=== PATIENT | female | born 1965 | race Caucasian/White ===

== ENCOUNTER 2016-11-25 12:41 | Emergency (ER) | payer OTHER ==
[2016-11-25 12:50] VITALS: BP 136/99
--- NOTE | 2016-11-25 14:42 | RAD ---
INDICATION: Fever. COMPARISON: Comparison is made with a prior study from June 24, 2016. TECHNIQUE: Dual-energy PA and lateral views of the chest were obtained. FINDINGS: The heart is within normal limits in size. Mediastinal and hilar contours appear within normal limits. The lungs are clear. No pleural effusion is present. IMPRESSION: NO EVIDENCE FOR ACTIVE CARDIOPULMONARY DISEASE.
[2016-11-25 15:03] LABS: Hematocrit 46 % (35-47); Hemoglobin 15.4 g/dl (12.0-16.0); Mean Corpuscular HGB Conc 34 g/dl (31-36); Mean Corpuscular Hemoglobin 30 pg (27-31); Mean Corpuscular Volume 90 fL (80-97); Mean Platelet Volume 8 um3 (7.4-10.4); Red Blood Count 5.09 10^6/ul (4.0-5.4); Red Cell Distribution Width 12 % (10.5-15); White Blood Count 7.1 10^3/ul (3.5-10.8)
[2016-11-25 15:15] LABS: ALT 15 U/L (7-52); AST 19 U/L (13-39); Albumin 4.7 g/dL (3.2-5.2); Alkaline Phosphatase 46 U/L (34-104); Anion Gap 8 mmol/L (2-11); BUN/Creatinine Ratio 17.1 (8-20); Blood Urea Nitrogen 13 mg/dL (6-24); CO2 Carbon Dioxide 27 mmol/L (22-32); Chloride 103 mmol/L (101-111); EGFR African American 103.2 (>60); EGFR Non-African American 80.2 (>60); Globulin 2.8 g/dL (2-4); Glucose 85 mg/dL (70-100); Lipase 39 U/L (11.0-82.0); Potassium 3.7 mmol/L (3.5-5.0); Sodium 138 mmol/L (133-145); Total Protein 7.5 g/dL (6.4-8.9)
[2016-11-25] MEDS ORDERED: NS 0.9% 1000 ML* 1,000 ML IV ONE (15:17)
--- NOTE | 2016-11-25 15:21 | ED ---
Dizziness - HPI Summary HPI Summary: Patient presents for delayed evaluation of lightheadedness for the last 2 weeks. She claims to have had increased thyroid medication by her PCP, and since then has had insomnia, crying episodes, anxiety, abdominal cramping with watery diarrhea. Denies systemic symptoms, chest pain, shortness of breath, cough, congestion, abd pain, urinary complaints. No allev factors attempted. Sent from PCP's office for evaluation. - History Of Current Complaint Chief Complaint: EDMentalHealth Stated Complaint: SENT BY DR OFFICE Time Seen by Provider: 11/25/16 13:37 Hx Obtained From: Patient Onset/Duration: Gradually Timing: Weeks Severity Initially: Mild Severity Currently: Mild Character: Lightheaded - Allergies/Home Medications Allergies/Adverse Reactions: Allergies Allergy/AdvReac Type Severity Reaction Status Date / Time Penicillins Allergy Unknown Unknown Verified 10/04/16 13:27 Reaction Details Codeine AdvReac Mild upset Verified 10/04/16 13:27 stomach PMH/Surg Hx/FS Hx/Imm Hx Previously Healthy: Yes Endocrine/Hematology History: Reports: Hx Thyroid Disease - possible hashimotos Denies: Hx Diabetes, Hx Anemia Cardiovascular History: Reports: Other Cardiovascular Problems/Disorders - PERICARDIAL EFFUSION Denies: Hx Hypertension GI History: Reports: Hx Gall Bladder Disease - GB removed December 2010 d/t stones Denies: Hx Jaundice History: Reports: Other Problems/Disorders - 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 gall bladder removed 2010 , partial hysterectomy, left patellar knee surgery Hx Anesthesia Reactions: No Infectious Disease History: No Infectious Disease History: Denies: Hx Clostridium Difficile, Hx Hepatitis, Hx Human Immunodeficiency Virus (HIV), Hx of Known/Suspected MRSA, Hx Shingles, Hx Tuberculosis, Hx Known/ Suspected VRE, Hx Known/Suspected VRSA, History Other Infectious Disease, Traveled Outside the [place] in Last 30 Days - Family History Family History: No FMHx of Breast CA - Social History Alcohol Use: Occasionally Substance Use Type: Reports: None Hx Tobacco Use: Yes Smoking Status (MU): Former Smoker Type: Cigarettes Amount Used/How Often: 1/2 PPD Length of Time of Smoking/Using Tobacco: 30+ years Have You Smoked in the Last Year: Yes Review of Systems Positive: Fatigue. Negative: Fever, Chills Negative: Photophobia Negative: Sore Throat, Nasal Discharge Cardiovascular: Negative Negative: Palpitations, Chest Pain Respiratory: Negative Negative: Shortness Of Breath, Cough Gastrointestinal: Negative Positive: Diarrhea. Negative: Abdominal Pain, Vomiting, Nausea Genitourinary: Negative Positive: no symptoms reported. Negative: burning Positive: Anxious All Other Systems Reviewed And Are Negative: Yes Physical Exam Triage Information Reviewed: Yes Vital Signs On Initial Exam: Initial Vitals Temp Pulse Resp BP Pulse Ox 98.5 F 84 18 136/99 100 11/25/16 12:44 11/25/16 12:44 11/25/16 12:44 11/25/16 12:44 11/25/16 12:44 Vital Signs Reviewed: Yes Appearance: Positive: Well-Appearing, No Pain Distress, Well-Nourished Skin: Positive: Warm, Skin Color Reflects Adequate Perfusion, Dry Head/Face: Positive: Normal Head/Face Inspection. Negative: Temporal Artery Tenderness, Cephalohematoma Eyes: Positive: Normal, EOMI, ANGELIQUE ENT: Positive: Normal ENT inspection, Hearing grossly normal, Pharynx normal, TMs normal. Negative: Pharyngeal erythema, Nasal congestion, Nasal drainage, Tonsillar swelling, Tonsillar exudate Neck: Positive: Supple, Nontender, No Lymphadenopathy, Other: - No thyromegaly or mass on exam Respiratory/Lung Sounds: Positive: Clear to Auscultation, Breath Sounds Present Cardiovascular: Positive: Normal, RRR, Pulses are Symmetrical in both Upper and Lower Extremities Abdomen Description: Positive: Nontender, No Organomegaly, Soft Musculoskeletal: Positive: Normal, Strength/ROM Intact Neurological: Positive: Normal, Sensory/Motor Intact, Alert, Oriented to Person Place, Time, CN Intact II-III, Reflexes Intact, Normal Gait Psychiatric: Positive: Other - tearful Diagnostics - Vital Signs Vital Signs Temp Pulse Resp BP Pulse Ox 11/25/16 12:44 98.5 F 84 18 136/99 100 - Laboratory Lab Results: Lab Results 11/25/16 11/25/16 Range/Units 14:35 14:35 WBC 7.1 (3.5-10.8) 10^3/ul RBC 5.09 (4.0-5.4) 10^6/ul Hgb 15.4 (12.0-16.0) g/dl Hct 46 (35-47) % MCV 90 (80-97) fL MCH 30 (27-31) pg MCHC 34 (31-36) g/dl RDW 12 (10.5-15) % Plt Count 185 (150-450) 10^3/ul MPV 8 (7.4-10.4) um3 Neut % (Auto) 56.3 (38-83) % Lymph % (Auto) 36.5 (25-47) % Davidson % (Auto) 6.5 (1-9) % Eos % (Auto) 0.2 (0-6) % Baso % (Auto) 0.5 (0-2) % Absolute Neuts (auto) 4.0 (1.5-7.7) 10^3/ul Absolute Lymphs (auto) 2.6 (1.0-4.8) 10^3/ul Absolute Monos (auto) 0.5 (0-0.8) 10^3/ul Absolute Eos (auto) 0 (0-0.6) 10^3/ul Absolute Basos (auto) 0 (0-0.2) 10^3/ul Absolute Nucleated RBC 0 10^3/ul Nucleated RBC % 0.1 Sodium 138 (133-145) mmol/L Potassium 3.7 (3.5-5.0) mmol/L Chloride 103 (101-111) mmol/L Carbon Dioxide 27 (22-32) mmol/L Anion Gap 8 (2-11) mmol/L BUN 13 (6-24) mg/dL Creatinine 0.76 (0.51-0.95) mg/dL Est GFR ( Amer) 103.2 (>60) Est GFR (Non-Af Amer) 80.2 (>60) BUN/Creatinine Ratio 17.1 (8-20) Glucose 85 (70-100) mg/dL Calcium 10.0 (8.6-10.3) mg/dL Total Bilirubin 0.60 (0.2-1.0) mg/dL AST 19 (13-39) U/L ALT 15 (7-52) U/L Alkaline Phosphatase 46 (34-104) U/L Total Protein 7.5 (6.4-8.9) g/dL Albumin 4.7 (3.2-5.2) g/dL Globulin 2.8 (2-4) g/dL Albumin/Globulin Ratio 1.7 (1-3) Lipase 39 (11.0-82.0) U/L TSH Pending Free T4 Pending Total T3 Pending Salicylates Pending Acetaminophen Pending Serum Alcohol Pending Result Diagrams: 11/25/16 14:35 11/25/16 14:35 Lab Statement: Any lab studies that have been ordered have been reviewed, and results considered in the medical decision making process. Dizzy Course/Dx - Diagnoses Differential Diagnosis/HQI/PQRI: Anxiety, Other - Iatrogenic hyperthyroidism, UTI. Will discuss the plan with PCP after evaluation. Nontoxic appearing, but tearful. Provider Diagnoses: Hyperthyroidism - Provider Notifications Discussed Care Of Patient with: 15:43 Dr. Toya Jamil paged to discuss the hyperthyroid and symptoms. Discharge - Discharge Plan Condition: Stable Disposition: HOME Prescriptions: ALPRAZolam TAB* [Xanax TAB*] 0.125 mg PO BEDTIME PRN #3 tab MDD 1 PRN Reason: Agitation/Anxiety/Insomnia Patient Education Materials: Induced Thyroid Disorders (ED) Forms: *Work Release Referrals: Toya Villa MD [Primary Care Provider] - Additional Instructions: Stop taking the CYTOMEL (liothyronin) and the Levothyroxine [address] Jamil will change your Synthroid (Levothyroxine) prescription to 88 mcg. Use the xanax only if needed for sleep and agitation before bedtime. This is a limited supply due to the addictive property. Call Dr. Jamil tomorrow morning for a follow up appointment.
[2016-11-25 15:23] LABS: Acetaminophen < 15 mcg/mL; Alcohol < 10 mg/dL (<10); Salicylate < 2.50 mg/dL (<30)
[2016-11-25 15:34] LABS: TSH (Thyroid Stimulating Horm) < 0.03 mcIU/mL (0.34-5.60)
[2016-11-25 15:40] LABS: Free T4 1.45 ng/dL (0.61-1.12)
[2016-11-25 15:44] LABS: Total T3 1.11 ng/mL (0.87-1.78)
== END 2016-11-25 17:05 | disposition home or self-care (01) ==
LOC: ED 12:41
DX: E05.90 Thyrotoxicosis, unspecified without thyrotoxic crisis or storm (principal); Z88.5 Allergy status to narcotic agent; Z87.891 Personal history of nicotine dependence; Z88.0 Allergy status to penicillin; N30.10 Interstitial cystitis (chronic) without hematuria
CPT/HCPCS: 36415; 71020; 80053; 80320; 80329; 83690; 84439; 84443; 84479; 85025; 96360; 99283; G0480

== ENCOUNTER 2017-12-19 14:09 | Emergency (ER) | payer OTHER ==
[2017-12-19] MEDS ORDERED: NS 0.9% 1000 ML* 1,000 ML IV ONE (14:41)
[2017-12-19] MEDS ORDERED: Metoprolol Tartrate TAB* 25 MG PO ONE (16:17)
[2017-12-19 16:25] LABS: ABS Basophils 0 10^3/ul (0-0.2); ABS Eosinophils 0 10^3/ul (0-0.6); ABS Lymphocytes 2.2 10^3/ul (1.0-4.8); ABS Monocytes 0.3 10^3/ul (0-0.8); ABS Neutrophils 2.5 10^3/ul (1.5-7.7); ABS Nucleated RBC 0 10^3/ul; Eosinophil % 0.6 % (0-6); Hematocrit 37 % (35-47); Hemoglobin 12.6 g/dl (12.0-16.0); Lymphocyte % 42.9 % (25-47); Mean Corpuscular HGB Conc 35 g/dl (31-36); Mean Corpuscular Hemoglobin 29 pg (27-31); Mean Corpuscular Volume 85 fL (80-97); Mean Platelet Volume 8 um3 (7.4-10.4); Nucleated Red Blood Cells % 0.1; Platelet Count 192 10^3/ul (150-450); Red Blood Count 4.29 10^6/ul (4.0-5.4); Red Cell Distribution Width 12 % (10.5-15); White Blood Count 5.1 10^3/ul (3.5-10.8)
[2017-12-19 16:47] LABS: EGFR Non-African American 97.1 (>60)
[2017-12-19 18:10] VITALS: BP 115/75
--- NOTE | 2017-12-19 18:48 | RAD ---
Indication: Dyspnea. 2 views of the chest including dual energy PA views demonstrate no mediastinal shift. Heart is of normal size and configuration. Lung guy are clear. When compared to previous exam of November 25, 2016 no significant change is noted. IMPRESSION: No active cardiopulmonary disease is noted.
--- NOTE | 2017-12-23 19:31 | ED ---
Cassius Suggs Gabriel, scribed for Toro Celaya MD on 12/19/17 at 1509 . HPI Chest Pain - HPI Summary HPI Summary: This patient is a 52 year old F presenting to [facility] with a chief complaint of CP that began 2 months ago but in the last week has gotten worse. The patient rates the pain 10/10 in severity. Patient reports myalgia, SOB, nausea, diarrhea , inability to sleep, no appetite, gums are bleeding, fever, chills, tingling in all extremities, weakness, clear urine, and diarrhea. Patient denies cough. - History of Current Complaint Chief Complaint: EDChestPainROMI Time Seen by Provider: 12/19/17 14:19 Hx Obtained From: Patient Onset/Duration: Still Present Timing: Constant Initial Severity: Moderate Current Severity: Severe Pain Intensity: 10 Pain Scale Used: 0-10 Numeric Chest Pain Location: Diffuse Chest Pain Radiates: No Associated Signs and Symptoms: Positive: Negative - cough., Other: - myalgia, SOB, nausea, diarrhea, inability to sleep, no appetite, gums are bleeding, fever , chills, tingling in all extremities, weakness, clear urine, and diarrhea - Allergy/Home Medications Allergies/Adverse Reactions: Allergies Allergy/AdvReac Type Severity Reaction Status Date / Time codeine Allergy GI Upset Verified 12/19/17 17:51 Penicillins Allergy Rash Verified 12/19/17 17:51 PMH/Surg Hx/FS Hx/Imm Hx Endocrine/Hematology History: Reports: Hx Thyroid Disease - possible hashimotos Denies: Hx Diabetes, Hx Anemia Cardiovascular History: Reports: Other Cardiovascular Problems/Disorders - PERICARDIAL EFFUSION Denies: Hx Hypertension GI History: Reports: Hx Gall Bladder Disease - GB removed December 2010 d/t stones Denies: Hx Jaundice History: Reports: 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 gall bladder removed 2010 , partial hysterectomy, left patellar knee surgery Hx Anesthesia Reactions: No Infectious Disease History: No Infectious Disease History: Denies: Hx Clostridium Difficile, Hx Hepatitis, Hx Human Immunodeficiency Virus (HIV), Hx of Known/Suspected MRSA, Hx Shingles, Hx Tuberculosis, Hx Known/ Suspected VRE, Hx Known/Suspected VRSA, History Other Infectious Disease, Traveled Outside the [place] in Last 30 Days - Family History Known Family History: Negative: Respiratory Disease, Seizure Disorder Family History: No FMHx of Breast CA - Social History Alcohol Use: Occasionally Substance Use Type: Reports: None Hx Tobacco Use: Yes Smoking Status (MU): Former Smoker Type: Cigarettes Amount Used/How Often: 1/2 PPD Length of Time of Smoking/Using Tobacco: 30+ years Have You Smoked in the Last Year: Yes Review of Systems Positive: Fever, Chills, Other - trouble sleeping and decreased appetite ENT: Other - bleeding gums Positive: Shortness Of Breath. Negative: Cough Positive: Diarrhea, Nausea Positive: other - clear urine Positive: Myalgia Neurological: Other - tingling in all extremities Positive: Weakness All Other Systems Reviewed And Are Negative: Yes Physical Exam - Summary Physical Exam Summary: Appearance: Well-appearing, Well-nourished. Hypervigilant and anxious Skin: Warm, Dry, No rash Eyes: Normal, PERRL, EOMI, sclera anicteric ENT: Normal Neck: Supple, nontender Respiratory: Clear to auscultation Cardiovascular: S1, S2, no murmur, no rub, no gallop Abdomen: Soft, nontender, no organomegaly Bowel sounds: Present Musculoskeletal: Normal, Strength/ROM Intact, no edema, pulses symmetrical Neurological: Normal, A&Ox3, cranial nerves II-XII WNL, follows commands, gait not tested, sensation intact to pin and light touch Psychiatric: affect normal, behavior appropriate, dressed appropriately, judgment intact Triage Information Reviewed: Yes Vital Signs On Initial Exam: Initial Vitals Temp Pulse Resp BP Pulse Ox 98.7 F 60 18 120/83 98 12/19/17 14:13 12/19/17 14:13 12/19/17 14:13 12/19/17 14:13 12/19/17 14:13 Vital Signs Reviewed: Yes Diagnostics - Vital Signs Vital Signs Temp Pulse Resp BP Pulse Ox 12/19/17 14:13 98.7 F 60 18 120/83 98 - Laboratory Result Diagrams: 12/19/17 15:00 12/19/17 15:00 Lab Statement: Any lab studies that have been ordered have been reviewed, and results considered in the medical decision making process. - Radiology CXR Radiology Interpretation Completed By: ED Physician - normal Chest Pain Course/Dx - Course Assessment/Plan: This patient is a 52 year old F presenting to [facility] with a chief complaint of CP that began 2 months ago but in the last week has gotten worse. The patient rates the pain 10/10 in severity. Patient reports myalgia, SOB, nausea, diarrhea, inability to sleep, no appetite, gums are bleeding, fever , chills, tingling in all extremities, weakness, and clear urine. Patient denies cough. CXR was normal. Test results with no significant abnormalities except for a free T4 of 1.20 and a TSH of 0.01. In the ED course the patient was given IV fluids and Lopressor. Dx iatrogenic hyperthyroidism. Patient will be discharged with prescription for Lopressor and follow up from Dr. Villa. The patient is agreeable with this plan. - Diagnoses Provider Diagnoses: Iatrogenic hyperthyroidism Discharge - Discharge Plan Condition: Good Disposition: HOME Prescriptions: Metoprolol Tartrate TAB* [Lopressor TAB*] 25 mg PO BID #60 tab Referrals: Toya Villa MD [Primary Care Provider] - Additional Instructions: spoke with patient and PMD, to stop levothyroxine until TSH back to normal, lopressor for symtoms of hyperthyroidism . The documentation as recorded by the Cassius cerda Gabriel accurately reflects the service I personally performed and the decisions made by me, Toro Celaya MD.
== END 2017-12-19 18:08 | disposition home or self-care (01) ==
LOC: ED 14:09
DX: E05.80 Other thyrotoxicosis without thyrotoxic crisis or storm (principal); R07.9 Chest pain, unspecified; Z87.891 Personal history of nicotine dependence; Z88.5 Allergy status to narcotic agent; Z88.0 Allergy status to penicillin
CPT/HCPCS: 36415; 71046; 80053; 80307; 84439; 84443; 84484; 85025; 85379; 93005; 96360; 96361; 99283

== ENCOUNTER 2018-03-15 09:23 | Emergency (ER) | payer OTHER ==
--- NOTE | 2018-03-15 11:11 | ED ---
Skin Complaint - HPI Summary HPI Summary: Patient is a 52-year-old female presenting to the ED with chief complaint of tick just below the right buttocks. She is unsure how long the tick is been attached. Endorses a mild amount of pain and some erythema to the area. She states she has been dealing with her doctor regarding generalized aches and pains and would be unable to tell if she had any new symptoms. However, she states she does not have any headache, neck stiffness or joint pains at this time. She removed the tick prior to arrival but states she left the head and and would like this to be removed. And eyes any fevers. Denies any other complaints at this time. - History of Current Complaint Chief Complaint: EDRashSkinAbscess Time Seen by Provider: 03/15/18 09:44 Stated Complaint: POSS. TICK Hx Obtained From: Patient Onset/Duration: Started Hours Ago Skin Exposure Onset/Duration: Hours Ago Timing: Constant Onset Severity: Moderate Current Severity: Moderate Pain Intensity: 3 Pain Scale Used: 0-10 Numeric Skin Location: Leg - right buttocks Aggravating Symptom(s): Nothing Alleviating Symptom(s): Nothing Related History: Insect Bite/Sting - Allergy/Home Medications Allergies/Adverse Reactions: Allergies Allergy/AdvReac Type Severity Reaction Status Date / Time codeine Allergy GI Upset Verified 02/09/18 15:39 Penicillins Allergy Rash Verified 02/09/18 15:39 Home Medications: Home Medications Cholecalciferol TAB* [Vitamin D TAB*] 4,000 units PO DAILY 03/15/18 [History Confirmed 03/15/18] Cyanocobalamin TAB* [Vitamin B12 TAB*] 500 mcg PO DAILY 03/15/18 [History Confirmed 03/15/18] Levothyroxine TAB* [Synthroid TAB*] 100 mcg PO EVERY OTHER DAY 03/15/18 [ History Confirmed 03/15/18] Levothyroxine TAB* [Synthroid TAB*] 112 mcg PO EVERY OTHER DAY 03/15/18 [ History Confirmed 03/15/18] oxyCODONE/Acetam5/325MG PREPAK [Percocet 5/325 TAB*] 1 tab PO QID PRN MDD 4 tabs 03/15/18 [History Confirmed 03/15/18] PMH/Surg Hx/FS Hx/Imm Hx Previously Healthy: Yes Endocrine/Hematology History: Reports: Hx Thyroid Disease - possible hashimotos Denies: Hx Diabetes, Hx Anemia Cardiovascular History: Reports: Other Cardiovascular Problems/Disorders - PERICARDIAL EFFUSION Denies: Hx Hypertension, Hx Pacemaker/ICD GI History: Reports: Hx Gall Bladder Disease - GB removed December 2010 d/t stones Denies: Hx Jaundice History: Reports: 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 gall bladder removed 2010 , partial hysterectomy, left patellar knee surgery Hx Anesthesia Reactions: No - Immunization History Hx Pertussis Vaccination: No Immunizations Up to Date: Unable to Obtain/Confirm Infectious Disease History: No Infectious Disease History: Denies: Hx Clostridium Difficile, Hx Hepatitis, Hx Human Immunodeficiency Virus (HIV), Hx of Known/Suspected MRSA, Hx Shingles, Hx Tuberculosis, Hx Known/ Suspected VRE, Hx Known/Suspected VRSA, History Other Infectious Disease, Traveled Outside the [place] in Last 30 Days - Family History Known Family History: Negative: Respiratory Disease, Seizure Disorder Family History: No FMHx of Breast CA - Social History Occupation: Employed Full-time Lives: Alone Alcohol Use: Occasionally Hx Substance Use: No Substance Use Type: Reports: None Hx Tobacco Use: Yes Smoking Status (MU): Former Smoker Type: Cigarettes Amount Used/How Often: 1/2 PPD Length of Time of Smoking/Using Tobacco: 30+ years Have You Smoked in the Last Year: Yes Review of Systems Constitutional: Negative Eyes: Negative Cardiovascular: Negative Respiratory: Negative Genitourinary: Negative Positive: no symptoms reported, see HPI Musculoskeletal: Negative Positive: Other - small erythema surroudning tick bite Neurological: Negative All Other Systems Reviewed And Are Negative: Yes Physical Exam Triage Information Reviewed: Yes Vital Signs On Initial Exam: Initial Vitals Temp Pulse Resp BP Pulse Ox 97.7 F 59 16 142/99 100 03/15/18 09:25 03/15/18 09:25 03/15/18 09:25 03/15/18 09:25 03/15/18 09:25 Vital Signs Reviewed: Yes Appearance: Positive: No Pain Distress, Well-Nourished Skin: Positive: Skin Color Reflects Adequate Perfusion, Other - erythema surrounding tick - no EM rash Neck: Positive: Supple, No Lymphadenopathy Respiratory/Lung Sounds: Positive: Clear to Auscultation, Breath Sounds Present Cardiovascular: Positive: RRR, Pulses are Symmetrical in both Upper and Lower Extremities Musculoskeletal: Positive: Normal, Strength/ROM Intact Neurological: Positive: Sensory/Motor Intact, Alert, Oriented to Person Place, Time, Speech Normal Psychiatric: Positive: Affect/Mood Appropriate Diagnostics - Vital Signs Vital Signs Temp Pulse Resp BP Pulse Ox 03/15/18 09:25 97.7 F 59 16 142/99 100 - Laboratory Lab Statement: Any lab studies that have been ordered have been reviewed, and results considered in the medical decision making process. Course/Dx - Course Course Of Treatment: During the course Trileptal the patient is evaluated for tick bite. Tweezers to dislodge the tech. Information given on Lyme and tick bites. There is no EM rash. Denies any other symptoms. She will not be treated with prophylactic dose due to the probability of tick attachment for less than 36 hours and no other signs of infection. - Diagnoses Provider Diagnoses: Tick bite Discharge - Sign-Out/Discharge Documenting (check all that apply): Discharge/Admit/Transfer - Discharge Plan Condition: Stable Disposition: HOME Patient Education Materials: Lyme Disease (ED), Tick Bite (ED) Referrals: Toya Villa MD [Primary Care Provider] - Additional Instructions: Approach to prophylaxis : According to the Infectious Diseases Society of [place] (IDSA) guidelines that recommend antibiotic prophylaxis only in patients who meet all of the following criteria: 1. Attached tick identified as an adult or nymphal I. scapularis tick (deer tick). 2. Tick is estimated to have been attached for 36 hours (by degree of engorgement or time of exposure). 3. Prophylaxis is begun within 72 hours of tick removal. Local rate of infection of ticks with B. burgdorferi is 20 percent if attached for over 48 hours (these rates of infection have been shown to occur in parts of [place], parts of the [facility], and [place] If you experience a tick and time of attachment is believed to be less than 36 hours, you may remove the tick with head intact and no need for prophylaxis. If over 36 hours, please come into UC. Prophylactic doxycycline is not recommended for ticks attached less than 36 hours. - Billing Disposition and Condition Condition: STABLE Disposition: HOME
[2018-03-15 11:39] VITALS: BP 140/82
== END 2018-03-15 11:39 | disposition home or self-care (01) ==
LOC: ED 09:23
DX: S30.860A Insect bite (nonvenomous) of lower back and pelvis, initial encounter (principal); W57.XXXA Bitten or stung by nonvenomous insect and other nonvenomous arthropods, initial encounter; Y92.9 Unspecified place or not applicable
CPT/HCPCS: 99281

== ENCOUNTER → 2018-12-03 11:04 | Emergency (ER) | payer BC ==
[~2018-12-03 11:04] MED LIST: Ketorolac INJ* 30 MG/ML 1 ML VIAL IV PUSH ONE; Metoclopramide IV* 5 MG/ML 2 ML VIAL IV ONE; NS 0.9% 1000 ML** 1,000 ML IV ONE; Nicotine Inhaler* 10 MG AMP INH PRN; diPHENhydraMINE IV* 50 MG/ML 1 ml VIAL (BENADRYL) IV ONE
[2018-12-03 13:18] LABS: ABS Basophils 0 10^3/ul (0-0.2); ABS Eosinophils 0 10^3/ul (0-0.6); ABS Monocytes 0.4 10^3/ul (0-0.8); ABS Neutrophils 4.9 10^3/ul (1.5-7.7); ABS Nucleated RBC 0 10^3/ul; Eosinophil % 0.3 %; Hematocrit 41 % (35-47); Hemoglobin 13.7 g/dl (12.0-16.0); Lymphocyte % 26.6 %; Mean Corpuscular HGB Conc 33 g/dl (31-36); Mean Corpuscular Hemoglobin 30 pg (27-31); Mean Corpuscular Volume 89 fL (80-97); Mean Platelet Volume 7.9 fL (7.4-10.4); Nucleated Red Blood Cells % 0.1; Platelet Count 214 10^3/ul (150-450); Red Blood Count 4.65 10^6/ul (4.00-5.40); Red Cell Distribution Width 12 % (10.5-15); White Blood Count 7.3 10^3/ul (3.5-10.8)
[2018-12-03 13:37] LABS: ALT 15 U/L (7-52); AST 18 U/L (13-39); Albumin 4.5 g/dL (3.2-5.2); Alkaline Phosphatase 53 U/L (34-104); Anion Gap 4 mmol/L (2-11); BUN/Creatinine Ratio 14.1 (8-20); Blood Urea Nitrogen 9 mg/dL (6-24); CO2 Carbon Dioxide 29 mmol/L (22-32); Calcium 9.5 mg/dL (8.6-10.3); Chloride 108 mmol/L (101-111); Creatine Kinase 54 U/L (10-223); EGFR African American 117.5 (>60); EGFR Non-African American 97.1 (>60); Globulin 2.3 g/dL (2-4); Glucose 97 mg/dL (70-100); Potassium 4.6 mmol/L (3.5-5.0); Sodium 141 mmol/L (135-145); Total Protein 6.8 g/dL (6.4-8.9)
[2018-12-03 13:38] LABS: Acetaminophen < 15 mcg/mL; Alcohol < 10 mg/dL (<10); Salicylate < 2.50 mg/dL (<30)
[2018-12-03 14:01] LABS: TSH (Thyroid Stimulating Horm) 0.01 mcIU/mL (0.34-5.60)
--- NOTE | 2018-12-03 14:20 | ED ---
Complex/Multi-Sys Presentation - HPI Summary HPI Summary: 52 year old F presenting to [facility] with a chief complaint of headache, heart pounding since four weeks ago, worse since two days ago. The patient rates the pain 8/10 in severity. Symptoms aggravated by bright lights. Symptoms alleviated by nothing. Patient reports insomnia. She additionally states she has been emotionally labile for the last 3 days. Patient takes thyroid medication and vitamins. - History Of Current Complaint Chief Complaint: EDGeneral Time Seen by Provider: 12/03/18 13:59 Hx Obtained From: Patient Onset/Duration: Lasting Weeks - 4, Still Present, Worse Since - 2 days ago Timing: Constant Severity Currently: Severe Aggravating Factor(s): Bright lights Alleviating Factor(s): Nothing Associated Signs And Symptoms: Positive: Other - insomnia, emotional labile - Allergies/Home Medications Allergies/Adverse Reactions: Allergies Allergy/AdvReac Type Severity Reaction Status Date / Time codeine Allergy GI Upset Verified 02/09/18 15:39 Penicillins Allergy Rash Verified 02/09/18 15:39 Home Medications: Home Medications Estradiol PATCH 0.1 MG/DAY* [Climara PATCH 0.1 MG/DAY*] 1 patch TOPICAL .TWICE A WEEK 12/03/18 [History Confirmed 12/03/18] Levothyroxine TAB* [Synthroid TAB*] 125 mcg PO DAILY 12/03/18 [History Confirmed 12/03/18] Naproxen TAB* [Naprosyn 250 mg TAB*] 500 mg PO BID PRN 12/03/18 [History Confirmed 12/03/18] PMH/Surg Hx/FS Hx/Imm Hx Previously Healthy: No Endocrine/Hematology History: Reports: Hx Thyroid Disease - possible hashimotos Denies: Hx Diabetes, Hx Anemia Cardiovascular History: Reports: Other Cardiovascular Problems/Disorders - PERICARDIAL EFFUSION Denies: Hx Hypertension, Hx Pacemaker/ICD GI History: Reports: Hx Gall Bladder Disease - GB removed December 2010 d/t stones Denies: Hx Jaundice History: Reports: Other Problems/Disorders - interstitial cystitis under treatment as outpatient [employer] Denies: Hx Dialysis, Hx Renal Disease Musculoskeletal History: Reports: Hx Back Problems, Hx Orthopedic Injury - left patellar dislocation fixed 1982 Sensory History: Reports: Hx Contacts or Glasses Opthamlomology History: Reports: Hx Contacts or Glasses Psychiatric History: Denies: Hx Panic Disorder - Cancer History Hx Chemotherapy: No Hx Radiation Therapy: No - Surgical History Surgery Procedure, Year, and Place: 2 back surgeries. gall bladder removed 2010 , partial hysterectomy, left patellar knee surgery Hx Anesthesia Reactions: No Infectious Disease History: No Infectious Disease History: Denies: Hx Clostridium Difficile, Hx Hepatitis, Hx Human Immunodeficiency Virus (HIV), Hx of Known/Suspected MRSA, Hx Shingles, Hx Tuberculosis, Hx Known/ Suspected VRE, Hx Known/Suspected VRSA, History Other Infectious Disease, Traveled Outside the [place] in Last 30 Days - Family History Known Family History: Negative: Respiratory Disease, Seizure Disorder Family History: No FMHx of Breast CA - Social History Alcohol Use: Occasionally Hx Substance Use: No Substance Use Type: Reports: None Hx Tobacco Use: Yes Smoking Status (MU): Former Smoker Type: Cigarettes Amount Used/How Often: 1/2 PPD Length of Time of Smoking/Using Tobacco: 30+ years Have You Smoked in the Last Year: Yes Review of Systems Positive: Other - heart pounding Positive: Headache Positive: Other - emotionally labile, insomnia All Other Systems Reviewed And Are Negative: Yes Physical Exam - Summary Physical Exam Summary: Appearance: The patient is well-nourished in no acute distress and in no acute pain. Skin: The skin is warm and dry and skin color reflects adequate perfusion. HEENT: The head is normocephalic and atraumatic. The pupils are equal and reactive. The conjunctivae are clear and without drainage. Nares are patent and without drainage. Mouth reveals moist mucous membranes and the throat is without erythema and exudate. The external ears are intact. The ear canals are patent and without drainage. The tympanic membranes are intact. Neck: The neck is supple with full range of motion and non-tender. There are no carotid bruits. There is no neck vein distension. Respiratory: Chest is non-tender. Lungs are clear to auscultation and breath sounds are symmetrical and equal. Cardiovascular: Heart is regular rate and rhythm. There is no murmur or rub auscultated. There is no peripheral edema and pulses are symmetrical and equal. Abdomen: The abdomen is soft and non-tender. There are normal bowel sounds heard in all four quadrants and there is no organomegaly palpated. Musculoskeletal: There is no back tenderness noted. Extremities are non-tender with full range of motion. There is good capillary refill. There is no peripheral edema or calf tenderness elicited. Neurological: Patient is alert and oriented to person, place and time. The patient has symmetrical motor strength in all four extremities. Cranial nerves are grossly intact. Deep tendon reflexes are symmetrical and equal in all four extremities. Psychiatric: The patient is emotionally labile GCS: 15 Triage Information Reviewed: Yes Vital Signs On Initial Exam: Initial Vitals Temp Pulse Resp BP Pulse Ox 98.1 F 71 16 161/91 99 12/03/18 11:06 12/03/18 11:06 12/03/18 11:06 12/03/18 11:06 12/03/18 11:06 Vital Signs Reviewed: Yes Diagnostics - Vital Signs Vital Signs Temp Pulse Resp BP Pulse Ox 12/03/18 12:33 97.7 F 84 22 107/78 99 12/03/18 11:06 98.1 F 71 16 161/91 99 - Laboratory Lab Results: Lab Results 12/03/18 12/03/18 Range/Units 13:05 13:05 WBC 7.3 (3.5-10.8) 10^3/ul RBC 4.65 (4.00-5.40) 10^6/ul Hgb 13.7 (12.0-16.0) g/dl Hct 41 (35-47) % MCV 89 (80-97) fL MCH 30 (27-31) pg MCHC 33 (31-36) g/dl RDW 12 (10.5-15) % Plt Count 214 (150-450) 10^3/ul MPV 7.9 (7.4-10.4) fL Neut % (Auto) 67.3 % Lymph % (Auto) 26.6 % [place] % (Auto) 5.4 % Eos % (Auto) 0.3 % Baso % (Auto) 0.4 % Absolute Neuts (auto) 4.9 (1.5-7.7) 10^3/ul Absolute Lymphs (auto) 2.0 (1.0-4.8) 10^3/ul Absolute Monos (auto) 0.4 (0-0.8) 10^3/ul Absolute Eos (auto) 0 (0-0.6) 10^3/ul Absolute Basos (auto) 0 (0-0.2) 10^3/ul Absolute Nucleated RBC 0 10^3/ul Nucleated RBC % 0.1 Sodium 141 (135-145) mmol/L Potassium 4.6 (3.5-5.0) mmol/L Chloride 108 (101-111) mmol/L Carbon Dioxide 29 (22-32) mmol/L Anion Gap 4 (2-11) mmol/L BUN 9 (6-24) mg/dL Creatinine 0.64 (0.51-0.95) mg/dL Est GFR ( Amer) 117.5 (>60) Est GFR (Non-Af Amer) 97.1 (>60) BUN/Creatinine Ratio 14.1 (8-20) Glucose 97 (70-100) mg/dL Calcium 9.5 (8.6-10.3) mg/dL Total Bilirubin 0.30 (0.2-1.0) mg/dL AST 18 (13-39) U/L ALT 15 (7-52) U/L Alkaline Phosphatase 53 (34-104) U/L Total Creatine Kinase 54 (10-223) U/L Total Protein 6.8 (6.4-8.9) g/dL Albumin 4.5 (3.2-5.2) g/dL Globulin 2.3 (2-4) g/dL Albumin/Globulin Ratio 2.0 (1-3) TSH 0.01 L (0.34-5.60) mcIU/mL Salicylates < 2.50 (<30) mg/dL Acetaminophen < 15 mcg/mL Serum Alcohol < 10 (<10) mg/dL Result Diagrams: 12/03/18 13:05 12/03/18 13:05 Lab Statement: Any lab studies that have been ordered have been reviewed, and results considered in the medical decision making process. - CT Brain CT Interpretation Completed By: Radiologist Summary of CT Findings: 1. No acute intracranial process evident. 2. Mild cerebellar atrophy without change. ED physician has reviewed this report. - EKG 1242 Cardiac Rate: NL - 60 BPM EKG Rhythm: Sinus Rhythm ST Segment: Non-Specific Ectopy: None Summary of EKG Findings: No STEMI Re-Evaluation - Re-Evaluation First Eval Re-Evaluation Time: 18:18 Comment: Patient feels better and is agreeable to go home. Her headache is gone. Complex Multi-Symp Course/Dx Course Of Treatment: Ms. Oliver was emotionally labile and quite upset when I first evaluated her. It was difficult to tell exactly what her main complaint was. Her exam was unremarkable aside from the emotional lability. Labs were obtained and were unremarkable except a TSH of 0.01. A free T3 and 4 were obtained and although the T3 was a little elevated was not significant. At that point her major complaint was headache that was frontal and throbbing. She was given a migraine cocktail of normal saline, Benadryl, Reglan and Toradol. This completely resolved her headache and she felt much improved and I will discharge her for follow-up with her PCP. At no point did she have any meningeal signs. - Diagnoses Provider Diagnoses: Headache Discharge - Sign-Out/Discharge Documenting (check all that apply): Patient Departure - Discharge Patient Received Moderate/Deep Sedation with Procedure: No - Discharge Plan Condition: Stable Disposition: HOME Patient Education Materials: General Headache (ED) Forms: *Work Release Referrals: Toya Villa MD [Primary Care Provider] - 3 Days Additional Instructions: Follow up with your primary care provider in 3 days. Return to the Emergency Department for new or worsening symptoms. - Billing Disposition and Condition Condition: STABLE Disposition: Home - Attestation Statements Document Initiated by Cindy: Yes Documenting Scribe: Evangelina Piña Provider For Whom Cindy is Documenting (Include Credential): Shakir Camarillo MD Scribe Attestation: I, Evangelina Piña, scribed for Shakir Camarillo MD on 12/03/18 at 2023. Scribe Documentation Reviewed: Yes Provider Attestation: The documentation as recorded by the Evangelina cerda accurately reflects the service I personally performed and the decisions made by me, Shakir Camarillo MD Status of Scribe Document: Viewed
[2018-12-03 14:30] LABS: Urine Appearance Clear; Urine Bilirubin Negative (Negative); Urine Blood Negative (Negative); Urine Color Straw; Urine Glucose Negative (Negative); Urine Ketones Negative (Negative); Urine Nitrite Negative (Negative); Urine Protein Negative (Negative); Urine Specific Gravity 1.008 (1.010-1.030); Urine Urobilinogen Negative (Negative)
[2018-12-03 14:44] LABS: Barbiturates Urine Screen None Detected (None Detect); Benzodiazepine Urine Screen None Detected (None Detect); Urine Cannabinoids Screen Presumptive Positive (None Detect)
[2018-12-03 15:18] LABS: T4, Total 8.03 mcg/dL (6.09-12.23)
[2018-12-03 18:50] VITALS: BP 109/79
== END | disposition home or self-care (01) ==
LOC: ED 11:04
DX: R51 Headache (principal); G47.00 Insomnia, unspecified; Z88.0 Allergy status to penicillin; Z87.891 Personal history of nicotine dependence
CPT/HCPCS: 36415; 70450; 80053; 80307; 80320; 80329; 81003; 82550; 84436; 84443; 84481; 85025; 93005; 99283; G0480; J1200; J1885; J2765

== ENCOUNTER 2019-04-27 13:40 | Emergency (ER) | payer BC ==
--- OUTSIDE RECORDS SUMMARY | 2019-04-27 14:52 | XMS REPORT | Continuity of Care Document ---
:1965 External Reference #:[id number] Author Name Melvina Veronica, AMBER Address [address] [place] [address] Care Team Providers Name Role Phone Marie Samuel M.D., R.D. Care Team Information Compliance Project Manager Unavailable Payers Date Identification Numbers Payment Provider Subscriber Effective: 2015 Policy Number: [id number] Medicaid/Computer [employer] Ana Lebron Sanford Expires: 2015 Group Name: 1 1 [address] PayID: [id number] [place] [address] Effective: 2015 Policy Number: [id number] [facility] Ana Phillips Medicaid Expires: 2016 PayID: [id number] [address] [place] [address] Effective: 2016 Policy Number: [id number] [place] [facility] Medicaid Ana Lebron Sanford Expires: 2017 PayID: [id number] [address] [place] [address] Effective: 2017 Policy Number: [id number] Medicaid/Computer Science Ana J Sanford Expires: 2017 Group Name: 1 1 [address] PayID: [id number] [place] [address] Effective: 2017 Policy Number: [id number] [place] [facility] Ana J Sanford Medicaid Expires: 2018 PayID: [id number] [address] [place] [address] Effective: 2018 Policy Number: [id number] [facility] Ana Lebron Benito Group Name: [employer] [address] [address] PayID: [id number] Ronny JON [id number] Family History Date Family Member(s) Observation Comments First Son 21 First Son Healthy Grandchildren 1 in [place] Social History Type Date Description Comments Sex Unknown Diet Healthy, Well Balanced Diet Vegetarian A lot of fruits and vegetables. Loves milk and cheese. Eats fish occasionally. 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 Smoking Status Reviewed: 11/24/17 Patient is a former Stopped Nov.13, smoker 2017. Exercise Type/Frequency Does not exercise Active at work and outside in nice weather. Allergies, Adverse Reactions, Alerts Active Allergies Reaction Severity Comments Date Codeine upset stomach 12/13/2015 Aspirin upset stomach 12/13/2015 Watermelon hives 12/13/2015 Medications Active Medications SIG Qnty Indications Ordering Date Provider Hand Finger Orthosis for carpal tunnel Marie Samuel, 04/10/2018 Bilateral syndrome M.Honey, R.D. Diflucan 1 by mouth x 1 1tabs Marie Samuel, 04/06/2018 150mg Tablets M.DTristian, R.D. Doxycycline Hyclate 2 capsules po 2caps Roney Lin 03/17/2018 100mg once III, CURRICULUM DEVELOPER-C Capsules Probiotic 2 qd Marie Samuel, 08/11/2017 Capsules Manjit, R.D. Naproxen take one tablet 60tabs Marie Samuel, 05/26/2017 500mg Tablets by mouth twice a M.D., R.D. day as needed Percocet 1-2 by mouth 30tabs Marie Samuel, 07/05/2016 5-325mg Tablets twice a day as M.D., R.D. needed pain Calcium 500 + D 2 gummies qd Marie Samuel, 12/13/2015 Manjit, R.DTristian 182-230in-Psvl Tablets Estradiol Barry Colby MD 0.1mg/24HR Patches Biweek Levothyroxine Sodium Barry Colby MD 125mcg Tablets History Medications Levothyroxine Sodium 1 by mouth every 30tabs Marie Samuel, 08/16/2018 - day MMello, R.D. 12/03/2018 137mcg Tablets Levothyroxine Sodium 1 by mouth every 30tabs Marie Samuel, 07/22/2018 - day Manjit, R.D. 08/16/2018 125mcg Tablets 6 Week Carpal Tunnel Diagnosis: carpal Marie Samuel, 04/10/2018 - Solution tunnel bilaterally Manjit, R.D. 04/10/2018 Doxycycline 2 tab by mouth 2caps Roney Lin 03/16/2018 - Monohydrate once III, CURRICULUM DEVELOPER-C 03/17/2018 100mg Capsules Levothyroxine Sodium 1 by mouth 5 days 30tabs Marie Samuel, 03/16/2018 - per week and 1/2 Manjit, R.D. 07/22/2018 112mcg Tablets pill 2 days per week Levothyroxine Sodium 1 by mouth every 30tabs Marie Samuel, 03/14/2018 - day Beatriz.Honey, R.D. 03/16/2018 100mcg Tablets Levothyroxine Sodium 1 by mouth every 30tabs Marie Samuel, 01/01/2018 - day Manjit, R.D. 03/14/2018 112mcg Tablets Gabapentin Start with one 90caps M54.10 Marie Samuel, 12/29/2017 - 100mg Capsules pill at bedtime Manjit, R.D. 03/13/2018 but ok to increase to 2 or 3 pills at bedtime if needed. You can also take 1 in the morning Levothyroxine Sodium 1 by mouth every 30tabs Marie Samuel, 11/25/2017 - day Beatriz.Honey, R.D. 01/01/2018 125mcg Tablets Levothyroxine Sodium 1 by mouth every 30tabs Marie Samuel, 09/19/2017 - day Beatriz.Honey, R.D. 11/25/2017 137mcg Tablets Levothyroxine Sodium 1 po qd 30tabs Marie Samuel, 08/12/2017 - M.Honey, R.D. 09/19/2017 150mcg Tablets Ciprodex 3 drops in right QS Marie Samuel, 08/11/2017 - 0.3-0.1% ear twice a day Manjit, R.D. 12/29/2017 Suspension for a week Levothyroxine Sodium 1 by mouth every Marie Samuel, 08/11/2017 - day M.Honey, R.D. 08/12/2017 100mcg Tablets Diflucan 1 by mouth x 1 1tabs Marie Samuel, 04/14/2017 - 150mg Tablets M.Honey, R.D. 08/11/2017 Bactrim DS 1 by mouth twice a 14tabs Marie Samuel, 04/14/2017 - 800-160mg day fill Manjit, R.D. 08/11/2017 Tablets generically Levothyroxine Sodium 1 by mouth every 30tabs Marie Samuel, 11/25/2016 - day Manjit, R.D. 08/11/2017 88mcg Tablets Liothyronine Sodium take 1 po q Am 30tabs Marie Samuel, 10/31/2016 - 5mcg Beatriz.Honey, R.D. 11/25/2016 Tablets Amoxicillin 1 by mouth twice a 14tabs K02.9 Marie Samuel, 10/30/2016 - 875mg Tablets day Beatriz.Honey, R.D. 11/25/2016 Chantix Starting Month take 0.5 mg twice 1tabs Z71.6 Marie Samuel, 10/30 - Christian a day for 3 days, MMello, R.D. 04/16/2017 0.5mg X 11 & 1 mg X then 1 mg twice a 42 Tablets day Levothyroxine Sodium 1 by mouth every 30tabs Marie Samuel, 09/02/2016 - day M.Honey, R.D. 11/25/2016 100mcg Tablets Levothyroxine Sodium 1 po qd 30tabs Marie Samuel, 08/27/2016 - M.Honey, R.D. 08/27/2016 88mcg Tablets Levothyroxine Sodium 1 by mouth every 30tabs Marie Samuel, 08/27/2016 - day M.Honey, R.D. 09/02/2016 100mcg Tablets Levothyroxine Sodium 1 by mouth every 30tabs Marie Samuel, 07/07/2016 - day Beatriz.Honey, R.D. 08/27/2016 100mcg Tablets Naproxen Sodium 1 by mouth twice a 42tabs Marie Samuel, 07/05/2016 - 550mg day M.Honey, R.D. 05/26/2017 Tablets Prilosec take one capsule 30caps Marie Samuel, 07/01/2016 - 20mg Capsules DR by mouth every day Beatriz.Honey, R.D. 07/06/2016 (gerd) Tramadol HCL take one three 30tabs Marie Samuel, 06/19/2016 - 50mg Tablets times a day as M.D., R.D. 03/13/2018 needed Cephalexin 1 by mouth three 30caps R59.0 Marie Samuel, 06/10/2016 - 500mg Capsules times a day Beatriz.Honey, R.D. 07/06/2016 Levothyroxine Sodium 1 by mouth every 90tabs Marie Samuel, 06/10/2016 - day M.Honey, R.D. 07/07/2016 112mcg Tablets Levothyroxine Sodium 1 by mouth every 30tabs Marie Samuel, 12/17/2015 - day Beatriz.Honey, R.D. 06/10/2016 125mcg Tablets Levothyroxine Sodium 1 by mouth every 90tabs Marie Samuel, 07/19/2015 - day M.Honey, R.D. 12/17/2015 100mcg Tablets Cyclobenzaprine HCL take 1 tablet by 90tabs Marie Samuel, 07/19/2015 - 10mg mouth twice a day M.Honey, R.D. 03/13/2018 Tablets as needed for pain [place] generic form 30tabs Marie Samuel, 07/19/2015 - 7.5-325mg Tablets please 1 by mouth Beatriz.Honey, R.D. 07/05/2016 twice a day for severe pain Ibuprofen take 1 tablet by 60tabs Marie Samuel, 07/19/2015 - 800mg Tablets mouth two times M.Honey, R.D. 04/16/2017 daily Medications Administered in Office Medication SIG Qnty Indications Ordering Provider Date Injection Ketorolac Marie Samuel M.D., 12/29/2017 Tromethamine Per 15 MG R.D. (Toradol) Injection Injection Ketorolac Marie Samuel M.D., 04/14/2017 Tromethamine Per 15 MG R.D. (Toradol) Injection Rocephin (Ceftriaxone) Per Marie Samuel M.D., 04/14/2017 250MG R.D. Injection Injection Ketorolac Marie Samuel M.D., 07/05/2016 Tromethamine Per 15 MG R.D. (Toradol) Injection Injection Ketorolac TRAMAINE Pool 06/25/2016 Tromethamine Per 15 MG (Toradol) Injection Immunizations CPT Code Status Date Vaccine Lot # 73730 Given 12/21/1998 DT (Adult) 37083 Refused 11/24/2017 Influenza Virus Vaccine, Quadrivalent, 3 Yr > Quad , Preserv Free Vital Signs Date Vital Result Comment 04/10/2019 10:04am Weight 128.00 lb Weight 58.061 kg BP Systolic 120 mmHg BP Diastolic 74 mmHg Heart Rate 80 /min Body Temperature 98.2 F Respiratory Rate 16 /min 01/28/2018 4:21pm Weight 111.00 lb Weight 50.350 kg BP Systolic 108 mmHg BP Diastolic 70 mmHg Heart Rate 83 /min Body Temperature 98.4 F Respiratory Rate 16 /min O2 % BldC Oximetry 97 % 01/09/2018 12:26pm Weight 134.00 lb Weight 60.782 kg BP Systolic 100 mmHg BP Diastolic 80 mmHg Heart Rate 68 /min Body Temperature 98.7 F Respiratory Rate 16 /min Height 68 inches 5'8" BMI (Body Mass Index) 20.4 kg/m2 O2 % BldC Oximetry 94 % 12/29/2017 4:12pm Weight 137.00 lb Weight 62.143 kg BP Systolic 106 mmHg BP Diastolic 64 mmHg Heart Rate 69 /min Body Temperature 97.7 F Respiratory Rate 16 /min Height 67 inches 5'7" BMI (Body Mass Index) 21.5 kg/m2 O2 % BldC Oximetry 98 % 11/24/2017 12:05pm Weight 135.00 lb Weight 61.236 kg BP Systolic 100 mmHg BP Diastolic 68 mmHg Heart Rate 56 /min Body Temperature 97.3 F Respiratory Rate 14 /min 08/11/2017 3:35pm Weight 135.00 lb Weight 61.236 kg BP Systolic 110 mmHg BP Diastolic 62 mmHg Heart Rate 64 /min Body Temperature 96.9 F O2 % BldC Oximetry 98 % 04/16/2017 4:34pm Weight 133.00 lb Weight 60.329 kg BP Systolic 108 mmHg BP Diastolic 66 mmHg Heart Rate 68 /min Body Temperature 97.8 F Respiratory Rate 16 /min O2 % BldC Oximetry 98 % 04/14/2017 3:21pm Weight 128.00 lb Weight 58.061 kg BP Systolic 104 mmHg BP Diastolic 66 mmHg Heart Rate 76 /min Body Temperature 99.1 F Respiratory Rate 16 /min 11/25/2016 11:17am Weight 123.00 lb Weight 55.793 kg BP Systolic 140 mmHg BP Diastolic 88 mmHg Heart Rate 84 /min 10/30/2016 3:51pm Weight 127.00 lb Weight 57.607 kg BP Systolic 108 mmHg BP Diastolic 66 mmHg Heart Rate 65 /min Body Temperature 98.0 F Respiratory Rate 16 /min Height 67 inches 5'7" BMI (Body Mass Index) 19.9 kg/m2 O2 % BldC Oximetry 98 % 07/05/2016 12:16pm Weight 126.00 lb Weight 57.154 kg BP Systolic 90 mmHg BP Diastolic 60 mmHg Heart Rate 60 /min Body Temperature 98.0 F Respiratory Rate 12 /min 06/25/2016 12:27pm Weight 128.00 lb Weight 58.061 kg BP Systolic 106 mmHg BP Diastolic 62 mmHg Heart Rate 72 /min Body Temperature 99.2 F Respiratory Rate 18 /min 06/19/2016 11:46am Weight 124.00 lb Weight 56.246 kg BP Systolic 120 mmHg BP Diastolic 65 mmHg Heart Rate 64 /min 06/10/2016 10:40am Weight 127.00 lb Weight 57.607 kg BP Systolic 102 mmHg BP Diastolic 70 mmHg Heart Rate 64 /min Body Temperature 98.2 F Respiratory Rate 17 /min O2 % BldC Oximetry 99 % 12/13/2015 2:08pm Weight 126.00 lb Weight 57.154 kg BP Systolic 90 mmHg BP Diastolic 60 mmHg Heart Rate 62 /min Height 67.5 inches 5'7.50" BMI (Body Mass Index) 19.4 kg/m2 07/19/2015 10:25am Weight 120.00 lb Weight 54.432 kg BP Systolic 106 mmHg BP Diastolic 62 mmHg Heart Rate 76 /min Respiratory Rate 14 /min Results Test Date Facility Test Result H/L Range Note Laboratory test [facility] TSH (Thyroid 0.01 Low 0.34-5.60 finding [phone] Stimulating mcIU/mL Horm) Free T4 1.40 ng/dL High 0.61-1.12 Estradiol <40 pg/mL 1 Total T3 128 ng/dL N 87-178 Estradiol, Confirmatory, S <10 pg/mL 2 CBC Auto Diff 12/03/2018 [facility] White Blood 7.3 10^3/uL N 3.5-10.8 [phone] Count Red Blood Count 4.65 10^6/uL N 4.00-5.40 Hemoglobin 13.7 g/dL N 12.0-16.0 Hematocrit 41 % N 35-47 Mean Corpuscular Volume 89 fL N 80-97 Mean Corpuscular Hemoglobin 30 pg N 27-31 Mean Corpuscular HGB Conc 33 g/dL N 31-36 Red Cell Distribution Width 12 % N 10.5-15 Platelet Count 214 10^3/uL N 150-450 Mean Platelet Volume 7.9 fL N 7.4-10.4 Abs Neutrophils 4.9 10^3/uL N 1.5-7.7 Abs Lymphocytes 2.0 10^3/uL N 1.0-4.8 Abs Monocytes 0.4 10^3/uL N 0-0.8 Abs Eosinophils 0 10^3/uL N 0-0.6 Abs Basophils 0 10^3/uL N 0-0.2 Abs Nucleated RBC 0 10^3/uL Granulocyte % 67.3 % Lymphocyte % 26.6 % Monocyte % 5.4 % Eosinophil % 0.3 % Basophil % 0.4 % Nucleated Red Blood Cells % 0.1 Comp Metabolic Panel 12/03/2018 [facility] Sodium 141 mmol/L N 135-145 [phone] Potassium 4.6 mmol/L N 3.5-5.0 Chloride 108 mmol/L N 101-111 Co2 Carbon Dioxide 29 mmol/L N 22-32 Anion Gap 4 mmol/L N 2-11 Glucose 97 mg/dL N 70-100 Blood Urea Nitrogen 9 mg/dL N 6-24 Creatinine 0.64 mg/dL N 0.51-0.95 BUN/Creatinine Ratio 14.1 N 8-20 Calcium 9.5 mg/dL N 8.6-10.3 Total Protein 6.8 g/dL N 6.4-8.9 Albumin 4.5 g/dL N 3.2-5.2 Globulin 2.3 g/dL N 2-4 Albumin/Globulin Ratio 2.0 N 1-3 Total Bilirubin 0.30 mg/dL N 0.2-1.0 Alkaline Phosphatase 53 U/L N 34-104 Alt 15 U/L N 7-52 Ast 18 U/L N 13-39 Egfr Non- 97.1 >60 Egfr 117.5 >60 3 Laboratory test 12/03/2018 [facility] Creatine Kinase 54 U/L N 10-223 finding [phone] Acetaminophen < 15 g/mL 4 Alcohol < 10 mg/dL N <10 Salicylate < 2.50 mg/dL <30 TSH (Thyroid Stimulating Horm) 0.01 mcIU/mL Low 0.34-5.60 Urinalysis Profile 12/03/2018 [facility] Urine Color Straw [phone] Urine Appearance Clear Urine Specific [place] 1.008 Low 1.010-1.030 Urine pH 5.0 N 5-9 Urine Urobilinogen Negative Negative Urine Ketones Negative Negative Urine Protein Negative Negative Urine Leukocytes Negative Negative Urine Blood Negative Negative * * Abnormal Negative 5 Urine Nitrite Negative Negative Urine Bilirubin Negative Negative Urine Glucose Negative Negative Urine Drug 12/03/2018 [facility] Amphetamine Ur None Detected None Detect SCR ED & [phone] Screen Pain Clinic Barbiturates Urine Screen None Detected None Detect Benzodiazepine Urine Screen None Detected None Detect Urine Cannabinoids Screen Presumptive Posi <SEE NOTE> Abnormal None Detect 6 Urine Cocaine Screen None Detected None Detect Urine Opiates Screen None Detected None Detect Urine Phencyclidine Screen None Detected None Detect 7 Laboratory test 12/03/2018 [facility] Thyroxine 8.03 g/dL N 6.09-12.23 finding [phone] Free T3 4.40 pg/mL High 2.5-3.9 Laboratory 08/14/2018 [facility] TSH (Thyroid 43.24 High 0.34-5.60 test finding [phone] Stimulating mcIU/mL Horm) Free T4 0.67 ng/dL N 0.61-1.12 Total T3 71 ng/dL Low 87-178 Laboratory 07/20/2018 [facility] TSH (Thyroid 79.04 High 0.34-5.60 test finding [phone] Stimulating mcIU/mL Horm) Total T3 79 ng/dL Low 87-178 Free T4 0.57 ng/dL Low 0.61-1.12 Thyroperoxidase AB 50.07 IU/mL High <9 Thyroid Stimulating Igg (Tsi) <1.0 TSIindex <=1.3 8 Laboratory 04/04/2018 [facility] TSH (Thyroid 0.21 Low 0.34-5.60 test finding [phone] Stimulating mcIU/mL Horm) Total T3 94 ng/dL N 87-178 Free T4 1.03 ng/dL N 0.61-1.12 Laboratory test 03/26/2018 [facility] Methylmalonic Acid 0.11 <=0.40 9 finding [phone] Mma nmol/mL Nuclear AB (Romain) By Ifa Igg <1:80 (Negative) 10 Protein 03/26/2018 [facility] Total 7.1 g/dL 6.3 - Electrophoresis [phone] Protein(Pep) 7.9 Albumin 3.8 g/dL 3.4-4.7 Alpha-1 Globulin 0.3 g/dL 0.1-0.3 Alpha-2 Globulin 0.9 g/dL 0.6-1.0 Beta Globulin 0.9 g/dL 0.7-1.2 Gamma Globulin 1.2 g/dL 0.6-1.6 Albumin/Globulin Ratio 1.18 Impression See Comment 11 Laboratory test 03/26/2018 [facility] Lyme Disease Negative Negative 12 finding [phone] Serology Connective 03/26/2018 [facility] Anti-Nuclear 1.1 U High 13 Tissue Panel [phone] Antibody Cyclic Citrullinated Peptide <15.6 U 14 Interpretation See Comment 15 Heavy Metal Blool 03/26/2018 [facility] Arsenic <1 ng /mL 0-12 16 [phone] Lead 1.7 g/dL 0.0-4.9 17 Mercury <1 ng/mL 0-9 18 Cadmium 0.6 ng/mL 0.0-4.[address] [place] [id number] [facility] JENNIFER Guardian First Name ANA Guardian Last Name DELL Home Phone UNK Venous/Capillary Heavy Metals Venous Patient Race Submitting Laboratory Phone [phone] Laboratory test 03/26/2018 [facility] Rheumatoid < 10 IU/mL N <15 21 finding [phone] Factor C Reactive Protein < 1.00 mg/L N < 5.00 22 Folic Acid (Folate) > 20.00 ng/mL >3.99 23 Vitamin B12 834 pg/mL N 180-914 24 Erythrocyte Sed Rate 9 mm/Hr N 0-30 25 Laboratory test 03/14/2018 [facility] TSH (Thyroid 0.01 Low 0.34-5.60 finding [phone] Stim Horm) mcIU/mL T3 Total 1.15 ng/mL N 0.87-1.78 Free T4 (Free Thyroxine) 1.27 ng/dL High 0.61-1.12 Laboratory test 01/28/2018 [facility] Creatine 144 U/ L N 10-223 26 finding [phone] Kinase(CK) Erythrocyte Sed Rate 12 mm/Hr N 0-30 27 CRP High Sensitivity 0.32 mg/L 28 Magnesium 2.1 mg/dL N 1.9-2.7 29 Lyme Western 01/16/2018 [facility] Lyme Disease Negative Negative Blot [phone] IgG Ab WB Lyme Disease IgG Bands Present No bands detecte <SEE NOTE> kDa 30 Lyme Disease IgM Ab WB Negative Negative Lyme Disease IgM Bands Present p41, kDa Lyme Disease Interpretation See Comment 31 Tick-Borne Panel 01/16/2018 [facility] Babesia Negative Negative PCR Blood [phone] microti PCR Babesia ducani Negative Negative Babesia divergens/Mo-1 Negative Negative 32 Anaplasma phagocytophilum Negative Negative Ehrlichia chaffeensis Negative Negative Ehrlichia ewingii/canis Negative Negative Ehrlichia muris-like Negative Negative 33 B. miyamotoi PCR, B Negative Negative 34 Laboratory test 01/16/2018 [facility] Miscellaneous Test See Comment 35 finding [phone] Laboratory test 12/29/2017 [facility] TSH (Thyroid Stim 1.05 mcIU/mL N 0.34- 36 finding [phone] Horm) 5.60 T3 Total 0.75 ng/mL Low 0.87-1.78 37 Free T4 (Free Thyroxine) 0.39 ng/dL Low 0.61-1.12 38 Progesterone < 0.1 ng/mL 39 Testosterone 12/29/2017 [facility] Free 0.08 0.06- 0.92 40 Free & Total [phone] Testosterone ng/dL ng/dl Testosterone 10 ng/dL 8-60 41 Laboratory test 12/29/2017 [facility] Dhea 1.0 ng/mL <6.0 42 finding [phone] Arthritis Panel 12/29/2017 [facility] Uric Acid 3.5 mg/dL N 2.3-6.6 [phone] Erythrocyte Sed Rate 8 mm/Hr N 0-30 Anti-Nuclear Antibody 2.2 U High 43 Cyclic Citrullinated Peptide <15.6 U 44 Interpretation See Comment 45 Rheumatoid Factor <10 IU/mL 0-14 46 Anca Panel For 12/29/2017 [facility] Myeloperoxidase AB < 0.2 U 47 Vasculitis [phone] Proteinase 3 AB < 0.2 U 48 Laboratory test 12/29/2017 [facility] Estradiol <40 pg/mL 49 finding [phone] Estradiol, Confirmatory, S <10 pg/mL 50 Urine Drug 12/19/2017 [facility] Amphetamine Ur None Detected None Detect SCR ED & [phone] Screen Pain Clinic Barbiturates Urine Screen None Detected None Detect Benzodiazepine Urine Screen None Detected None Detect Urine Cannabinoids Screen Presumptive Posi <SEE NOTE> Abnormal None Detect 51 Urine Cocaine Screen None Detected None Detect Urine Opiates Screen None Detected None Detect Urine Phencyclidine Screen None Detected None Detect 52 Laboratory test 12/19/2017 [facility] D Dimer < 200 N Less 53 finding [phone] Quantitative ng/mL Than 230 TSH (Thyroid Stimulating Horm) < 0.01 mcIU/mL Low 0.34-5.60 CBC Auto Diff 12/19/2017 [facility] White Blood 5.1 10^3/uL N 3.5-10.8 [phone] Count Red Blood Count 4.29 10^6/uL N 4.0-5.4 Hemoglobin 12.6 g/dL N 12.0-16.0 Hematocrit 37 % N 35-47 Mean Corpuscular Volume 85 fL N 80-97 Mean Corpuscular Hemoglobin 29 pg N 27-31 Mean Corpuscular HGB Conc 35 g/dL N 31-36 Red Cell Distribution Width 12 % N 10.5-15 Platelet Count 192 10^3/uL N 150-450 Mean Platelet Volume 8 um3 N 7.4-10.4 Abs Neutrophils 2.5 10^3/uL N 1.5-7.7 Abs Lymphocytes 2.2 10^3/uL N 1.0-4.8 Abs Monocytes 0.3 10^3/uL N 0-0.8 Abs Eosinophils 0 10^3/uL N 0-0.6 Abs Basophils 0 10^3/uL N 0-0.2 Abs Nucleated RBC 0 10^3/uL Granulocyte % 49.4 % N 38-83 Lymphocyte % 42.9 % N 25-47 Monocyte % 6.7 % N 0-7 Eosinophil % 0.6 % N 0-6 Basophil % 0.4 % N 0-2 Nucleated Red Blood Cells % 0.1 Comp Metabolic Panel 12/19/2017 [facility] Sodium 139 mmol/L N 133-145 [phone] Potassium 3.7 mmol/L N 3.5-5.0 Chloride 107 mmol/L N 101-111 Co2 Carbon Dioxide 26 mmol/L N 22-32 Anion Gap 6 mmol/L N 2-11 Glucose 96 mg/dL N 70-100 Blood Urea Nitrogen 16 mg/dL N 6-24 Creatinine 0.64 mg/dL N 0.51-0.95 BUN/Creatinine Ratio 25.0 High 8-20 Calcium 9.6 mg/dL N 8.6-10.3 Total Protein 6.5 g/dL N 6.4-8.9 Albumin 4.2 g/dL N 3.2-5.2 Globulin 2.3 g/dL N 2-4 Albumin/Globulin Ratio 1.8 N 1-3 Total Bilirubin 0.50 mg/dL N 0.2-1.0 Alkaline Phosphatase 45 U/L N 34-104 Alt 15 U/L N 7-52 Ast 18 U/L N 13-39 Egfr Non- 97.1 >60 Egfr 124.8 >60 54 Laboratory test 12/19/2017 [facility] Troponin-I (TnI ) 0.00 ng/mL <0.04 finding [phone] Free T4 1.20 ng/dL High 0.61-1.12 Laboratory test 11/24/2017 [facility] TSH (Thyroid < 0.01 Low 0.34-5.60 55 finding [phone] Stim Horm) mcIU/mL T3 Total 1.09 ng/mL N 0.87-1.78 56 Free T4 (Free Thyroxine) 1.19 ng/dL High 0.61-1.12 57 Laboratory test 09/19/2017 [facility] TSH (Thyroid 0.06 Low 0.34-5.60 58 finding [phone] Stim Horm) mcIU/mL T3 Total 1.00 ng/mL N 0.87-1.78 59 Free T4 (Free Thyroxine) 1.70 ng/dL High 0.61-1.12 60 Laboratory test 08/11/2017 [facility] TSH (Thyroid 83.95 High 0.34-5.60 61 finding [phone] Stim Horm) mcIU/mL CBC Auto Diff 08/11/2017 [facility] White Blood 5.5 10^3/uL N 3.5-10.8 [phone] Count Red Blood Count 4.15 10^6/uL N 4.0-5.4 Hemoglobin 12.6 g/dL N 12.0-16.0 Hematocrit 38 % N 35-47 Mean Corpuscular Volume 91 fL N 80-97 Mean Corpuscular Hemoglobin 30 pg N 27-31 Mean Corpuscular HGB Conc 33 g/dL N 31-36 Red Cell Distribution Width 14 % N 10.5-15 Platelet Count 162 10^3/uL N 150-450 Mean Platelet Volume 8 um3 N 7.4-10.4 Abs Neutrophils 2.4 10^3/uL N 1.5-7.7 Abs Lymphocytes 2.6 10^3/uL N 1.0-4.8 Abs Monocytes 0.4 10^3/uL N 0-0.8 Abs Eosinophils 0.1 10^3/uL N 0-0.6 Abs Basophils 0 10^3/uL N 0-0.2 Abs Nucleated RBC 0 10^3/uL N Granulocyte % 44.7 % N 38-83 Lymphocyte % 47.0 % N 25-47 Monocyte % 6.5 % N 1-9 Eosinophil % 1.1 % N 0-6 Basophil % 0.7 % N 0-2 Nucleated Red Blood Cells % 0.1 N Comp Metabolic Panel 08/11/2017 [facility] Sodium 140 mmol/L N 133-145 [phone] Potassium 4.5 mmol/L N 3.5-5.0 Chloride 105 mmol/L N 101-111 Co2 Carbon Dioxide 32 mmol/L N 22-32 Anion Gap 3 mmol/L N 2-11 Glucose 83 mg/dL N 70-100 Blood Urea Nitrogen 13 mg/dL N 6-24 Creatinine 0.83 mg/dL N 0.51-0.95 BUN/Creatinine Ratio 15.7 N 8-20 Calcium 10.0 mg/dL N 8.6-10.3 Total Protein 6.9 g/dL N 6.4-8.9 Albumin 4.5 g/dL N 3.2-5.2 Globulin 2.4 g/dL N 2-4 Albumin/Globulin Ratio 1.9 N 1-3 Total Bilirubin 0.40 mg/dL N 0.2-1.0 Alkaline Phosphatase 46 U/L N 34-104 Alt 14 U/L N 7-52 Ast 21 U/L N 13-39 Egfr Non- 72.2 N >60 Egfr 92.8 N >60 62 Liver Function 08/11/2017 [facility] Direct 0.10 mg/ dL N 0.03-0.18 Panel [phone] Bilirubin Indirect Bilirubin 0.3 mg/dL N 0.3-1.0 Laboratory test 04/14/2017 [facility] Wound SEE RESULT 63 finding [phone] Culture/Sensi BELOW CBC Auto Diff 11/25/2016 [facility] White Blood Count 7.1 10^3/uL N 3.5-2 [phone] 0.8 Red Blood Count 5.09 10^6/uL N 4.0-5.4 Hemoglobin 15.4 g/dL N 12.0-16.0 Hematocrit 46 % N 35-47 Mean Corpuscular Volume 90 fL N 80-97 Mean Corpuscular Hemoglobin 30 pg N 27-31 Mean Corpuscular HGB Conc 34 g/dL N 31-36 Red Cell Distribution Width 12 % N 10.5-15 Platelet Count 185 10^3/uL N 150-450 Mean Platelet Volume 8 um3 N 7.4-10.4 Abs Neutrophils 4.0 10^3/uL N 1.5-7.7 Abs Lymphocytes 2.6 10^3/uL N 1.0-4.8 Abs Monocytes 0.5 10^3/uL N 0-0.8 Abs Eosinophils 0 10^3/uL N 0-0.6 Abs Basophils 0 10^3/uL N 0-0.2 Abs Nucleated RBC 0 10^3/uL N Granulocyte % 56.3 % N 38-83 Lymphocyte % 36.5 % N 25-47 Monocyte % 6.5 % N 1-9 Eosinophil % 0.2 % N 0-6 Basophil % 0.5 % N 0-2 Nucleated Red Blood Cells % 0.1 N Comp Metabolic Panel 11/25/2016 [facility] Sodium 138 mmol/L N 133-145 [phone] Potassium 3.7 mmol/L N 3.5-5.0 Chloride 103 mmol/L N 101-111 Co2 Carbon Dioxide 27 mmol/L N 22-32 Anion Gap 8 mmol/L N 2-11 Glucose 85 mg/dL N 70-100 Blood Urea Nitrogen 13 mg/dL N 6-24 Creatinine 0.76 mg/dL N 0.51-0.95 BUN/Creatinine Ratio 17.1 N 8-20 Calcium 10.0 mg/dL N 8.6-10.3 Total Protein 7.5 g/dL N 6.4-8.9 Albumin 4.7 g/dL N 3.2-5.2 Globulin 2.8 g/dL N 2-4 Albumin/Globulin Ratio 1.7 N 1-3 Total Bilirubin 0.60 mg/dL N 0.2-1.0 Alkaline Phosphatase 46 U/L N 34-104 Alt 15 U/L N 7-52 Ast 19 U/L N 13-39 Egfr Non- 80.2 N >60 Egfr 103.2 N >60 64 Laboratory test 11/25/2016 [facility] Lipase 39 U/L N 11.0-82.0 finding [phone] Acetaminophen < 15 g/mL N 65 Alcohol < 10 mg/dL N <10 Salicylate < 2.50 mg/dL N <30 TSH (Thyroid Stim Horm) < 0.03 mcIU/mL Low 0.34-5.60 Free T4 1.45 ng/dL High 0.61-1.12 Total T3 1.11 ng/mL N 0.87-1.78 Laboratory test 10/30/2016 [facility] TSH (Thyroid 0.79 mcIU/mL N 0.34-5.60 66 finding [phone] Stim Horm) T3 Free 2.90 pg/mL N 2.5-3.9 67 Thyroxine 8.96 ?g/dL N 6.09-12.23 68 Laboratory test 08/16/2016 [facility] TSH (Thyroid 0.26 Low 0.34-5.60 69 finding [phone] Stim Horm) mcIU/mL T3 Total 0.58 ng/mL Low 0.87-1.78 70 Free T4 (Free Thyroxine) 1.05 ng/dL N 0.61-1.12 71 Laboratory test 07/05/2016 [facility] TSH (Thyroid 0.11 Low 0.34-5.60 72 finding [phone] Stim Horm) mcIU/mL T3 Total 0.87 ng/mL N 0.87-1.78 73 Free T4 (Free Thyroxine) 1.18 ng/dL High 0.61-1.12 74 CBC Auto Diff 06/24/2016 [facility] White Blood 5.7 10^3/uL N 3.5-10.8 [phone] Count Red Blood Count 4.84 10^6/uL N 4.0-5.4 Hemoglobin 14.4 g/dL N 12.0-16.0 Hematocrit 43 % N 35-47 Mean Corpuscular Volume 89 fL N 80-97 Mean Corpuscular Hemoglobin 30 pg N 27-31 Mean Corpuscular HGB Conc 33 g/dL N 31-36 Red Cell Distribution Width 13 % N 10.5-15 Platelet Count 197 10^3/uL N 150-450 Mean Platelet Volume 9 um3 N 7.4-10.4 Abs Neutrophils 3.0 10^3/uL N 1.5-7.7 Abs Lymphocytes 2.4 10^3/uL N 1.0-4.8 Abs Monocytes 0.3 10^3/uL N 0-0.8 Abs Eosinophils 0 10^3/uL N 0-0.6 Abs Basophils 0 10^3/uL N 0-0.2 Abs Nucleated RBC 0 10^3/uL N Granulocyte % 51.8 % N 38-83 Lymphocyte % 41.6 % N 25-47 Monocyte % 5.5 % N 1-9 Eosinophil % 0.6 % N 0-6 Basophil % 0.5 % N 0-2 Nucleated Red Blood Cells % 0.1 N Laboratory test 06/24/2016 [facility] Lactic Acid 0.6 mmol/L N 0.5-2.0 75 finding [phone] B Type Natriuretic Peptide 51 pg/mL N 76 Urinalysis Profile 06/24/2016 [facility] Urine Color Straw N [phone] Urine Appearance Clear N Urine Specific [place] 1.006 Low 1.010-1.030 Urine pH 6.0 N 5-9 Urine Urobilinogen Negative N Negative Urine Ketones Negative N Negative Urine Protein Negative N Negative Urine Leukocytes Negative N Negative Urine Blood 1+ Abnormal Negative Urine Nitrite Negative N Negative Urine Bilirubin Negative N Negative Urine Glucose Negative N Negative Urine White Blood Cell Absent N Absent Urine Red Blood Cell Trace(0-2/hpf) N Absent Urine Bacteria Absent N Absent Urine Squamous Epithelial Cell Present Abnormal Absent Laboratory test 06/24/2016 [facility] Amylase 66 U/L N 29-103 finding [phone] Lipase 42 U/L N 11.0-82.0 C Reactive Protein < 1.00 mg/L N < 5.00 77 Troponin I 0.00 ng/mL N <0.03 78 Comp Metabolic Panel 06/24/2016 [facility] Sodium 140 mmol/L N 133-145 [phone] Potassium 3.9 mmol/L N 3.5-5.0 Chloride 107 mmol/L N 101-111 Co2 Carbon Dioxide 30 mmol/L N 22-32 Anion Gap 3 mmol/L N 2-11 Glucose 86 mg/dL N 70-100 Blood Urea Nitrogen 6 mg/dL N 6-24 Creatinine 0.66 mg/dL N 0.51-0.95 BUN/Creatinine Ratio 9.1 N 8-20 Calcium 9.5 mg/dL N 8.6-10.3 Total Protein 7.0 g/dL N 6.4-8.9 Albumin 4.4 g/dL N 3.2-5.2 Globulin 2.6 g/dL N 2-4 Albumin/Globulin Ratio 1.7 N 1-3 Total Bilirubin 0.40 mg/dL N 0.2-1.0 Alkaline Phosphatase 50 U/L N 34-104 Alt 11 U/L N 7-52 Ast 13 U/L N 13-39 Egfr Non- 94.4 N >60 Egfr 121.4 N >60 79 Urine DIP 06/19/2016 In House Lab Leukocytes neg Neg [phone] Urine Nitrites neg Neg Urobilinogen norm Norm Total Protein, Urine neg Neg Urine pH 7 High 5-6 Urine Blood trace Neg Specific [place] 1.005 Low 1.01-1.02 Urine Ketones neg Neg Urine Bilirubin neg Neg Urine Glucose norm Norm Laboratory test 06/10/2016 [facility] Erythrocyte Sed 10 mm/Hr N 0-30 80 finding [phone] Rate C Reactive Protein < 1.00 mg/L N < 5.00 81 CBC Auto Diff 06/10/2016 [facility] White Blood 6.9 10^3/uL N 3.5-10.8 [phone] Count Red Blood Count 4.78 10^6/uL N 4.0-5.4 Hemoglobin 14.4 g/dL N 12.0-16.0 Hematocrit 43 % N 35-47 Mean Corpuscular Volume 91 fL N 80-97 Mean Corpuscular Hemoglobin 30 pg N 27-31 Mean Corpuscular HGB Conc 33 g/dL N 31-36 Red Cell Distribution Width 13 % N 10.5-15 Platelet Count 203 10^3/uL N 150-450 Mean Platelet Volume 9 um3 N 7.4-10.4 Abs Neutrophils 4.2 10^3/uL N 1.5-7.7 Abs Lymphocytes 2.2 10^3/uL N 1.0-4.8 Abs Monocytes 0.5 10^3/uL N 0-0.8 Abs Eosinophils 0 10^3/uL N 0-0.6 Abs Basophils 0 10^3/uL N 0-0.2 Abs Nucleated RBC 0.01 10^3/uL N Granulocyte % 60.8 % N 38-83 Lymphocyte % 31.6 % N 25-47 Monocyte % 6.9 % N 1-9 Eosinophil % 0.3 % N 0-6 Basophil % 0.4 % N 0-2 Nucleated Red Blood Cells % 0.1 N Laboratory test 06/10/2016 [facility] T3 Total 0.83 ng/mL Low 0.87-1.78 82 finding [phone] Free T4 (Free Thyroxine) 1.26 ng/dL High 0.61-1.12 83 Basic Metabolic 06/10/2016 [facility] Sodium 139 mmol /L N 133-145 Panel [phone] Potassium 4.9 mmol/L N 3.5-5.0 Chloride 107 mmol/L N 101-111 Co2 Carbon Dioxide 28 mmol/L N 22-32 Anion Gap 4 mmol/L N 2-11 Glucose 91 mg/dL N 70-100 Blood Urea Nitrogen 7 mg/dL N 6-24 Creatinine 0.71 mg/dL N 0.51-0.95 BUN/Creatinine Ratio 9.9 N 8-20 Calcium 9.6 mg/dL N 8.6-10.3 Egfr Non- 86.8 N >60 Egfr 111.6 N >60 84 Laboratory 06/10/2016 [facility] TSH (Thyroid 0.04 Low 0.34-5.60 85 test finding [phone] Stim Horm) mcIU/mL Lipid Profile 12/13/2015 [facility] Triglycerides 159 mg/dL N 86 (Trig/Chol/HDL [phone] ) Cholesterol 165 mg/dL N 87 HDL Cholesterol 43.3 mg/dL N 88 LDL Cholesterol 90 mg/dL N 89 Laboratory test 12/13/2015 [facility] TSH (Thyroid 4.86 ?IU/mL N 0.34-5.60 finding [phone] Stim Horm) Free T4 (Free Thyroxine) 0.91 ng/dL N 0.61-1.12 T3 Total 0.69 ng/mL Low 0.87-1.78 Laboratory test 12/13/2015 [facility] Cytology SEE RESULT 90 finding [phone] BELOW HPV Rna Ww/Reflex Genotype Negative N Negative 91 Comp Metabolic Panel 07/19/2015 [facility] Sodium 138 mmol/L N 133-145 [phone] Potassium 4.7 mmol/L N 3.5-5.0 Chloride 104 mmol/L N 101-111 Co2 Carbon Dioxide 27 mmol/L N 22-32 Anion Gap 7 mmol/L N 2-11 Glucose 88 mg/dL N 70-100 Blood Urea Nitrogen 7 mg/dL N 6-24 Creatinine 0.70 mg/dL N 0.51-0.95 BUN/Creatinine Ratio 10.0 N 8-20 Calcium 9.5 mg/dL N 8.6-10.3 Total Protein 7.3 g/dL N 6.4-8.9 Albumin 4.8 g/dL N 3.2-5.2 Globulin 2.5 g/dL N 2-4 Albumin/Globulin Ratio 1.9 N 1-3 Total Bilirubin 0.60 mg/dL N 0.2-1.0 Alkaline Phosphatase 51 U/L N 34-104 Alt 11 U/L N 7-52 Ast 17 U/L N 13-39 Egfr Non- 88.6 N >60 Egfr 113.9 N >60 92 CBC Auto Diff 07/19/2015 [facility] White Blood 6.8 10^3/uL N 4.8-10.8 [phone] Count Red Blood Count 4.85 10^6/uL N 4.0-5.4 Hemoglobin 15.0 g/dL N 12.0-16.0 Hematocrit 46 % N 35-47 Mean Corpuscular Volume 94 fL N 80-97 Mean Corpuscular Hemoglobin 31 pg N 27-31 Mean Corpuscular HGB Conc 33 g/dL N 31-36 Red Cell Distribution Width 13 % N 10.5-15 Platelet Count 256 10^3/uL N 150-450 Mean Platelet Volume 9 um3 N 7.4-10.4 Abs Neutrophils 4.4 10^3/uL N 1.5-7.7 Abs Lymphocytes 2.0 10^3/uL N 1.0-4.8 Abs Monocytes 0.3 10^3/uL N 0-0.8 Abs Eosinophils 0 10^3/uL N 0-0.6 Abs Basophils 0.1 10^3/uL N 0-0.2 Abs Nucleated RBC 0.01 10^3/uL N Granulocyte % 65.4 % N 38-83 Lymphocyte % 28.9 % N 25-47 Monocyte % 4.5 % N 1-9 Eosinophil % 0.3 % N 0-6 Basophil % 0.9 % N 0-2 Nucleated Red Blood Cells % 0.1 N Laboratory test 07/19/2015 [facility] TSH (Thyroid 2.70 ?IU/mL N 0.34-5.60 finding [phone] Stim Horm) Urine DIP 07/19/2015 In House Lab Specific 1.005 Low 1.01-1.02 [phone] [place] Urine pH 6 5-6 Leukocytes tracw Neg Urine Nitrites neg Neg Total Protein, Urine neg Neg Urine Glucose norm Norm Urine Ketones neg Neg Urobilinogen norm Norm Urine Bilirubin neg Neg Urine Blood neg Neg Laboratory test 11/11/2000 [email or web address]. T-4 Total 5.0 g/dL 4.5 - 12 93 finding [phone] TSH (Thyrotropin) 11.65 uIU/ml High 0.49 - 4.67 1 Estradiols <40 pg/mL are sent to a reference lab for low range testing. Postmenopausal Females < 20 Ovulating females: by day in cycle relative to LH Peak Follicular phase - 12 10-50 - 4 60-200 Mid-cycle - 1 120-375 Luteal phase + 2 50-155 + 6 60-260 + 12 15-115 2 REFERENCE VALUE Premenopausal: 15-350 (E2 levels vary widely through the menstrual cycle.) Postmenopausal: <10 ADDITIONAL INFORMATION This test was developed and its performance characteristics determined by [facility] in a manner consistent with CLIA requirements. This test has not been cleared or approved by the U.S. Food and Drug Administration. Test Performed by: [facility] [address] [place] [address] 3 Because ethnic data is not always readily available, this report includes an eGFR for both -Americans and non- Americans. The National Kidney Disease Education Program (NKDEP) does not endorse the use of the MDRD equation for patients that are not between the ages of 18 and 70, are , have extremes of body size, muscle mass, or nutritional status, or are non- or non-. According to the National Kidney Foundation, irrespective of diagnosis, the stage of the disease is based on the level of kidney function: Stage Description GFR(mL/min/1.73 m(2)) 1 Kidney damage with normal or decreased GFR 90 2 Kidney damage with mild decrease in GFR 60-89 3 Moderate decrease in GFR 30-59 4 Severe decrease in GFR 15-29 5 Kidney failure <15 (or dialysis) 4 Therapeutic concentration: <50 ug/mL Toxic concentration: >120 ug/mL 5 *Ascorbic acid is present which may interfere with detection of blood. 6 Presumptive Positive Presumptive positive results are unconfirmed. 7 The urine specimen was tested at the listed cutoffs: Drug class test level (ng/mL) Amphetamines 500 Barbiturates 200 Benzodiazepine metabolites 200 Cocaine metabolites 150 Cannabinoids 50 Opiates 300 Pcp 25 Specimen was received without chain of custody. Results should be used for medical purposes only. 8 Test Performed by: [facility] [address] [place] [address] 9 ADDITIONAL INFORMATION This test was developed and its performance characteristics determined by [facility] in a manner consistent with CLIA requirements. This test has not been cleared or approved by the U.S. Food and Drug Administration. Test Performed by: [facility] [address] [place] [address] 10 <1:80 (Negative) REFERENCE VALUE <1:80 (Negative) Test Performed by: [facility] - [address] [address] 11 RESULT: No apparent monoclonal protein on serum electrophoresis. Test Performed by: [facility] - [address] [address] 12 No evidence of antibodies to B. burgdorferi detected. False negative results may occur in recently infected patients (<=2 weeks) due to low or undetectable antibody levels to B. burgdorferi. If recent exposure is suspected, a second sample should be collected and tested in 2-4 weeks. Test Performed by: [facility] [address] [place] [address] 13 Interpretation: Weak Positive (1.1-2.9) REFERENCE VALUE <=1.0 (Negative) 14 REFERENCE VALUE <20.0 (Negative) 15 Tests for antibodies to dsDNA and VIDA antigens are not performed automatically unless the ROMAIN result is > or= 3.0 U. Studies performed at [facility] indicate that positive ROMAIN results <3.0 U are rarely accompanied by positive second order tests. Test Performed by: [facility] - [address] [address] 16 ADDITIONAL INFORMATION This test was developed and its performance characteristics determined by [facility] in a manner consistent with CLIA requirements. This test has not been cleared or approved by the U.S. Food and Drug Administration. 17 ADDITIONAL INFORMATION Testing performed by Inductively Coupled Plasma-Mass Spectrometry (ICP-MS). This test was developed and its performance characteristics determined by [facility] in a manner consistent with CLIA requirements. This test has not been cleared or approved by the U.S. Food and Drug Administration. 18 ADDITIONAL INFORMATION This test was developed and its performance characteristics determined by [facility] in a manner consistent with CLIA requirements. This test has not been cleared or approved by the U.S. Food and Drug Administration. 19 ADDITIONAL INFORMATION This test was developed and its performance characteristics determined by [facility] in a manner consistent with CLIA requirements. This test has not been cleared or approved by the U.S. Food and Drug Administration. 20 Test Performed by: [facility] [place] [address] 21 Copy Result to: MARIE SAMUEL ([id number]) 22 Acute inflammation: >10.00 23 Copy Result to: MARIE SAMUEL ([id number]) 24 Normal Range 180 to 914 Indeterminate Range 145 to 180 Deficient Range <145 25 Copy Result to: MARIE SAMUEL ([id number]) 26 [id number] 28 Low risk: <1.00 Average risk: 1.00-3.00 High risk: >3.00 29 [id number] 30 No bands detected 31 Specific serologic response to B. burgdorferi infection is not detected, but cannot rule out early infection during which low or undetectable antibody levels to B. burgdorferi may be present. If clinically indicated, a new serum specimen should be submitted in 7-14 days. ADDITIONAL INFORMATION CDC criteria require >=5 bands for IgG or >=2 bands for IgM for the Immunoblot to be considered positive. Bands (e.g.,p41) may be detected in patients without Lyme disease, and patterns not meeting the CDC criteria should be interpreted with caution. Immunoblot should be ordered only on specimens that are positive or equivocal by a FDA-licensed Lyme disease antibody screening test (e.g., EIA). Test Performed by: [facility] [address] [place] [address] 32 ADDITIONAL INFORMATION This test was developed and its performance characteristics determined by [facility] in a manner consistent with CLIA requirements. This test has not been cleared or approved by the U.S. Food and Drug Administration. 33 ADDITIONAL INFORMATION This test was developed and its performance characteristics determined by [facility] in a manner consistent with CLIA requirements. This test has not been cleared or approved by the U.S. Food and Drug Administration. 34 ADDITIONAL INFORMATION This test was developed and its performance characteristics determined by [facility] in a manner consistent with CLIA requirements. This test has not been cleared or approved by the U.S. Food and Drug Administration. Test Performed by: [facility] - [address] [address] 35 Test Result Flag Unit RefValue TSH, Sensitive, S 4.3 H mIU/L 0.3-4.2 Test Performed by: [facility] - [address] [address] 36 [id number] 39 Female reference ranges for Progesterone: Follicular phase.......0.3 - 1.5 ng/ml Mid-luteal phase.......5.2 - 18.5 ng/ml Postmenopausal.........< 0.8 ng/ml 1st trimester.........4.7 - 50.0 ng/ml 2nd trimester.........19.4 - 45.3 ng/ml 40 ADDITIONAL INFORMATION Testing performed by [facility]. This test was developed and its performance characteristics determined by [facility] in a manner consistent with CLIA requirements. This test has not been cleared or approved by the U.S. Food and Drug Administration. 41 ADDITIONAL INFORMATION Testing performed by Liquid Chromatography-Tandem Mass Spectrometry (LC-MS/MS). This test was developed and its performance characteristics determined by [facility] in a manner consistent with CLIA requirements. This test has not been cleared or approved by the U.S. Food and Drug Administration. Test Performed by: [facility] [employer] [facility] [address] [place] [address] 42 ADDITIONAL INFORMATION This test was developed and its performance characteristics determined by [facility] in a manner consistent with CLIA requirements. This test has not been cleared or approved by the U.S. Food and Drug Administration. Test Performed by: [facility] [employer] [facility] [address] [place] [address] 43 Interpretation: Weak Positive (1.1-2.9) REFERENCE VALUE <=1.0 (Negative) 44 REFERENCE VALUE <20.0 (Negative) 45 Tests for antibodies to dsDNA and VIDA antigens are not performed automatically unless the ROMAIN result is > or= 3.0 U. Studies performed at [facility] indicate that positive ROMAIN results <3.0 U are rarely accompanied by positive second order tests. Test Performed by: [facility] [employer] [facility] [address] [place] [address] 46 Performed by [email or web address], [address] [place] [address] [email or web address], Ronak Horn MD - Lab. Director Test Performed by: [email or web address] [address] [place] [address] 47 REFERENCE VALUE <0.4 (Negative) 48 REFERENCE VALUE <0.4 (Negative) Test Performed by: [facility] [address] [place] [address] 49 Estradiols <40 pg/mL are sent to a reference lab for low range testing. Postmenopausal Females < 20 Ovulating females: by day in cycle relative to LH Peak Follicular phase - 12 10-50 - 4 60-200 Mid-cycle - 1 120-375 Luteal phase + 2 50-155 + 6 60-260 + 12 15-115 50 REFERENCE VALUE Premenopausal: 15-350 (E2 levels vary widely through the menstrual cycle.) Postmenopausal: <10 ADDITIONAL INFORMATION This test was developed and its performance characteristics determined by [facility] in a manner consistent with CLIA requirements. This test has not been cleared or approved by the U.S. Food and Drug Administration. Test Performed by: [facility] [employer] [facility] [address] [place] [address] 51 Presumptive Positive Presumptive positive results are unconfirmed. 52 The urine specimen was tested at the listed cutoffs: Drug class test level (ng/mL) Amphetamines 500 Barbiturates 200 Benzodiazepine metabolites 200 Cocaine metabolites 150 Cannabinoids 50 Opiates 300 Pcp 25 Specimen was received without chain of custody. Results should be used for medical purposes only. 53 Please note: The following may produce a false positive D Dimer test: - Rheumatoid factor greater than 60 IU/ml - Plasma hemoglobin greater than 0.05 gm/dl - Bilirubin greater than 50 mg/dl - Lipids greater than 1000 mg/dl - FDP greater than 20 ug/ml 54 Because ethnic data is not always readily available, this report includes an eGFR for both -Americans and non- Americans. The National Kidney Disease Education Program (NKDEP) does not endorse the use of the MDRD equation for patients that are not between the ages of 18 and 70, are , have extremes of body size, muscle mass, or nutritional status, or are non- or non-. According to the National Kidney Foundation, irrespective of diagnosis, the stage of the disease is based on the level of kidney function: Stage Description GFR(mL/min/1.73 m(2)) 1 Kidney damage with normal or decreased GFR 90 2 Kidney damage with mild decrease in GFR 60-89 3 Moderate decrease in GFR 30-59 4 Severe decrease in GFR 15-29 5 Kidney failure <15 (or dialysis) 55 [id number] 57 [id number] 59 [id number] 60 [id number] 61 [id number] 62 Because ethnic data is not always readily available, this report includes an eGFR for both -Americans and non- Americans. The National Kidney Disease Education Program (NKDEP) does not endorse the use of the MDRD equation for patients that are not between the ages of 18 and 70, are , have extremes of body size, muscle mass, or nutritional status, or are non- or non-. According to the National Kidney Foundation, irrespective of diagnosis, the stage of the disease is based on the level of kidney function: Stage Description GFR(mL/min/1.73 m(2)) 1 Kidney damage with normal or decreased GFR 90 2 Kidney damage with mild decrease in GFR 60-89 3 Moderate decrease in GFR 30-59 4 Severe decrease in GFR 15-29 5 Kidney failure <15 (or dialysis) 63 SEE RESULT BELOW Name: ANA PHILLIPS : [address]: Marie Samuel MD Acct: [id number] Unit: [id number] AGE: 51 Location: [facility] Re04/14/17 SEX: F Status: REG REF SPEC: [id number] SHELLY: 04/14/17-[address] [facility] [address]: Marie Samuel MD REQ: [id number] RECD: 04/14/17 STATUS: COMP _ SOURCE: WOUND SPDESC: ORDERED: Culture Stain COMMENTS: [id number] Specimen Description right fifth digit Procedure Result Reported Site Wound/Misc Gram Stain Final 04/15/17- 0759 ML 2+ Epithelial Cells 2+ Neutrophils No Organisms Seen Wound/Misc Culture Final 04/16/17- 1026 ML No Growth Day 2 * ML - MAIN LAB ([facility]) . END OF REPORT * ML=Testing performed at Main Lab DEPARTMENT OF PATHOLOGY, [address] [place] [address] Mg Santos M.D. Director [facility] # [id number] 64 Because ethnic data is not always readily available, this report includes an eGFR for both -Americans and non- Americans. The National Kidney Disease Education Program (NKDEP) does not endorse the use of the MDRD equation for patients that are not between the ages of 18 and 70, are , have extremes of body size, muscle mass, or nutritional status, or are non- or non-. According to the National Kidney Foundation, irrespective of diagnosis, the stage of the disease is based on the level of kidney function: Stage Description GFR(mL/min/1.73 m(2)) 1 Kidney damage with normal or decreased GFR 90 2 Kidney damage with mild decrease in GFR 60-89 3 Moderate decrease in GFR 30-59 4 Severe decrease in GFR 15-29 5 Kidney failure <15 (or dialysis) 65 Therapeutic concentration: <50 ug/mL Toxic concentration: >120 ug/mL 66 [id number] 72 [id number] 74 [id number] 75 [place] Severe Sepsis and Septic Shock Management Bundle Measure requires all lactic acids initially measuring >2.0 mmol/L be repeated. 76 >100 to <200 pg/mL: likely compensated congestive heart failure (CHF) 200 to 400 pg/mL: likely moderate CHF >400 pg/mL: likely moderate to severe CHF 77 Acute inflammation: >10.00 78 Reference Range and Interpretation: TnI (ng/mL) Interpretation Less Than 0.03 ng/mL Not supportive of diagnosis of [place] 0.03 - 0.50 ng/mL Indeterminate: suggest serial studies if clinically indicated. Greater than 0.5 ng/mL Consistent with diagnosis of IL 79 Because ethnic data is not always readily available, this report includes an eGFR for both -Americans and non- Americans. The National Kidney Disease Education Program (NKDEP) does not endorse the use of the MDRD equation for patients that are not between the ages of 18 and 70, are , have extremes of body size, muscle mass, or nutritional status, or are non- or non-. According to the National Kidney Foundation, irrespective of diagnosis, the stage of the disease is based on the level of kidney function: Stage Description GFR(mL/min/1.73 m(2)) 1 Kidney damage with normal or decreased GFR 90 2 Kidney damage with mild decrease in GFR 60-89 3 Moderate decrease in GFR 30-59 4 Severe decrease in GFR 15-29 5 Kidney failure <15 (or dialysis) 80 [id number] 81 Acute inflammation: >10.00 82 [id number] 83 [id number] 84 Because ethnic data is not always readily available, this report includes an eGFR for both -Americans and non- Americans. The National Kidney Disease Education Program (NKDEP) does not endorse the use of the MDRD equation for patients that are not between the ages of 18 and 70, are , have extremes of body size, muscle mass, or nutritional status, or are non- or non-. According to the National Kidney Foundation, irrespective of diagnosis, the stage of the disease is based on the level of kidney function: Stage Description GFR(mL/min/1.73 m(2)) 1 Kidney damage with normal or decreased GFR 90 2 Kidney damage with mild decrease in GFR 60-89 3 Moderate decrease in GFR 30-59 4 Severe decrease in GFR 15-29 5 Kidney failure <15 (or dialysis) 85 [id number] 86 Desirable <150 Borderline high 150-199 High 200-499 Very High >500 87 Desirable <200 Borderline high 200-239 High >239 88 Low <40 Desirable: 40-60 High: >60 89 Desirable: <100 mg/dL Near Optimal: 100-129 mg/dL Borderline High: 130-159 mg/dL High: 160-189 mg/dL Very High: >189 mg/dL 90 SEE RESULT BELOW Name: ANA PHILLIPS Bernardino : [address]: Marie Samuel MD Acct: [id number] Unit: [id number] AGE: 50 Location: [facility] Re12/13/15 SEX: F Status: REG REF SPEC: [id number] SHELLY: 12/13/15-15[address] [facility] DR: Marie Samuel MD REQ: [id number] RECD: 12/13/[id number] STATUS: SOUT _ ORDERED: IMAGE ANALYSIS, HPV/Thin Prep, HPV 16/18 GENE FINAL DIAGNOSIS Negative for Intraepithelial lesion or Malignancy A. Ectocervical/Endocervical Specimen Adequacy: Satisfactory of evaluation Transformation zone component not identified Patient Information: HPV: High risk HPV RNA testing regardless of pap results. HPV 16/18 Genotype for HPV pos Actual Specimen Date: 12/13/15 Other Pertinent History: No History Given Date Time Test Result Flag (u) Normal Range 12/13/15 1519 HPV RNA RFLX GE Negative Negative The high-risk HPV types detected by the assay include: 16, 18, 31, 33, 35, 39, 45, 51, 52, 56, 58, 59, 66, and 68. Signed (signature on file) JARROD Tracey (ASC) 12/13 1432 This Pap test was evaluated with the assistance of the [employer] System. Due to cytologic findings at the business applications specialist microscope, comprehensive manual rescreening by a General Intern may be required. The Pap Smear is a screening test designed to aid in the detection of premalignant and malignant conditions of the uterine cervix. It is not a diagnostic procedure and should not be used as the sole means of detecting cervical cancer. Both false- positive and false- negative reports do occur. Depending on your risk status, a Pap smear should be obtained and evaluated every 1-3 years. END OF REPORT * ML=Testing performed at Main Lab DEPARTMENT OF PATHOLOGY, [address] [place] [address] Mg Santos M.D. Director [facility] # [id number] 91 The high-risk HPV types detected by the assay include: 16, 18, 31, 33, 35, 39, 45, 51, 52, 56, 58, 59, 66, and 68. 92 Because ethnic data is not always readily available, this report includes an eGFR for both -Americans and non- Americans. The National Kidney Disease Education Program (NKDEP) does not endorse the use of the MDRD equation for patients that are not between the ages of 18 and 70, are , have extremes of body size, muscle mass, or nutritional status, or are non- or non-. According to the National Kidney Foundation, irrespective of diagnosis, the stage of the disease is based on the level of kidney function: Stage Description GFR(mL/min/1.73 m(2)) 1 Kidney damage with normal or decreased GFR 90 2 Kidney damage with mild decrease in GFR 60-89 3 Moderate decrease in GFR 30-59 4 Severe decrease in GFR 15-29 5 Kidney failure <15 (or dialysis) 93 non-fasting Procedures Date Code Description Status 12/29/2017 70098 Therapeutic,Prophylactic,Or Diagnostic Inj,SC/Im Completed Specify Drug 04/14/2017 08937 Therapeutic,Prophylactic,Or Diagnostic Inj,SC/Im Completed Specify Drug 04/14/2017 23119 Therapeutic,Prophylactic,Or Diagnostic Inj,SC/Im Completed Specify Drug 08/13/2016 [id number] Colonoscopy Completed 07/05/2016 88675 Therapeutic,Prophylactic,Or Diagnostic Inj,SC/Im Completed Specify Drug 06/25/2016 62616 Therapeutic,Prophylactic,Or Diagnostic Inj,SC/Im Completed Specify Drug Encounters Type Date Location Provider Dx Diagnosis Office Visit 04/10/2018 Main Office Marie Samuel R20.2 Paresthesia of skin 3:01p Manjit, RMello M79.1 Myalgia E03.9 Hypothyroidism, unspecified R53.83 Other fatigue Office Visit 01/28/2018 4:00p Main Office Marie Jimmie, R20.2 Paresthesia of skin M.D., R.D. M79.1 Myalgia E03.9 Hypothyroidism, unspecified Office Visit 01/09/2018 12:15p Main Office Marie Samuel, R10.2 Pelvic and M.D., R.D. perineal pain R20.2 Paresthesia of skin R10.9 Unspecified abdominal pain R07.9 Chest pain, unspecified Office Visit 12/29/2017 4:00p Main Office Marie Samuel, E05.90 Thyrotoxicosis, unsp M.D., R.D. without thyrotoxic crisis or storm M54.10 Radiculopathy, site unspecified N95.1 Menopausal and female climacteric states M13.0 Polyarthritis, unspecified Office Visit 11/24/2017 12:00p Main Office Marie Samuel, E03.9 Hypothyroidism, Beatriz.Honey, R.D. unspecified N64.4 Mastodynia Office Visit 08/11/2017 3:30p Main Office Marie Samuel, R11.10 Vomiting , M.D., R.D. unspecified E03.9 Hypothyroidism, unspecified H61.21 Impacted cerumen, right ear Office Visit 04/16/2017 4:45p Main Office Marie Samuel, L03.115 Cellulitis of M.D., R.D. right lower limb Office Visit 04/14/2017 3:15p Main Office Marie Samuel, L03.115 Cellulitis of M.D., R.D. right lower limb Office Visit 11/25/2016 11:30a Main Office Marie Samuel, E03.9 Hypothyroidism, M.D., R.D. unspecified R45.851 Suicidal ideations Office Visit 10/30/2016 3:45p Main Office Marie Samuel, E03.9 Hypothyroidism, M.David., R.D. unspecified Z71.6 Tobacco abuse counseling K02.9 Dental caries, unspecified Office Visit 07/05/2016 12:15p Main Office Marie Samuel, R10.9 Unspecified M.D., R.D. abdominal pain E03.9 Hypothyroidism, unspecified R59.0 Localized enlarged lymph nodes Office Visit 06/25/2016 12:00p Main Office Gabriella Leong, R10.9 Unspecified CURRICULUM DEVELOPER-C abdominal pain Office Visit 06/19/2016 11:45a Main Office Shaggy Moore, E03.9 HypothyroidismMD unspecified T38.1x5D Adverse effect of thyroid hormones and substitutes, subs R10.30 Lower abdominal pain, unspecified Office Visit 06/10/2016 10:30a Main Office Marie Samuel, R59.0 Localized enlarged Manjit, R.D. lymph nodes E03.9 Hypothyroidism, unspecified Office Visit 12/13/2015 2:15p Main Office Marie Samuel, Z00.00 Encntr for Manjit, R.D. general adult medical exam w/o abnormal findings Z01.419 Encntr for maintainability engineer exam (general) (routine) w/o abn findings E03.9 Hypothyroidism, unspecified M54.5 Low back pain Z12.4 Encounter for screening for malignant neoplasm of cervix Office Visit 07/19/2015 10:30a Main Office Marie Samuel, E03.9 Hypothyroidism, Manjit, R.D. unspecified M54.5 Low back pain R31.9 Hematuria, unspecified L91.8 Other hypertrophic disorders of the skin
[2019-04-27 17:00] LABS: ABS Eosinophils 0.1 10^3/ul (0-0.6); ABS Lymphocytes 2.2 10^3/ul (1.0-4.8); ABS Monocytes 0.4 10^3/ul (0-0.8); ABS Neutrophils 2.6 10^3/ul (1.5-7.7); Eosinophil % 1.1 %; Hematocrit 40 % (35-47); Hemoglobin 13.4 g/dL (12.0-16.0); Lymphocyte % 42.2 %; Mean Corpuscular HGB Conc 34 g/dL (31-36); Mean Corpuscular Hemoglobin 30 pg (27-31); Mean Corpuscular Volume 89 fL (80-97); Nucleated Red Blood Cells % 0.1; Platelet Count 197 10^3/uL (150-450); Red Blood Count 4.49 10^6 /uL (3.70-4.87); Red Cell Distribution Width 13 % (10-15); White Blood Count 5.3 10^3/uL (3.5-10.8)
[2019-04-27 17:22] LABS: ALT 15 U/L (7-52); AST 18 U/L (13-39); Albumin 4.6 g/dL (3.2-5.2); Albumin/Globulin Ratio 1.9 (1-3); Alkaline Phosphatase 54 U/L (34-104); BUN/Creatinine Ratio 17.9 (8-20); Blood Urea Nitrogen 14 mg/dL (6-24); C Reactive Protein < 1.00 mg/L (<8.01); CO2 Carbon Dioxide 29 mmol/L (22-32); Chloride 109 mmol/L (101-111); EGFR African American 93.1 (>60); Globulin 2.4 g/dL (2-4); Glucose 96 mg/dL (70-100); Sodium 142 mmol/L (135-145)
[2019-04-27 17:23] LABS: Anion Gap 4 mmol/L (2-11); Potassium 5.1 mmol/L (3.5-5.0)
[2019-04-27 18:07] LABS: Urine Appearance Clear; Urine Bacteria Absent (Absent); Urine Bilirubin Negative (Negative); Urine Blood Negative (Negative); Urine Color Yellow; Urine Glucose Negative (Negative); Urine Ketones Negative (Negative); Urine Nitrite Negative (Negative); Urine Protein Negative (Negative); Urine Red Blood Cell Trace(0-2/hpf) (Absent); Urine Specific Gravity 1.008 (1.010-1.030); Urine Urobilinogen Negative (Negative); Urine White Blood Cell 2+(11-20/hpf) (Absent)
[2019-04-27] MEDS ORDERED: Morphine 4 MG/ML VIAL (1 ml) 4 MG/ML VIAL IV ONE ×2 (18:10→19:57)
[2019-04-27] MEDS ORDERED: Ondansetron INJ* 2 MG/ML VIAL IV ONE (18:10)
[2019-04-27] MEDS ORDERED: NS 0.9% 1000 ML** 1,000 ML IV ONE (18:10)
[2019-04-27] MEDS ORDERED: Iohexol 300* (CONTRAST) 10 ML SDV IV ONE (21:19)
[2019-04-27] MEDS ORDERED: Ondansetron ODT TAB* 4 MG PO ONE (22:55)
--- NOTE | 2019-04-27 23:18 | ED ---
Abdominal Pain/Female - HPI Summary HPI Summary: Patient complains of left lower quadrant abdominal pain 1 month. Patient states pain is intermittent, occasionally 10/10, progressive over the past few days. Worse with nothing, improves with nothing other than naproxen. Patient has history of kidney stones. Denies fever, cough, sore throat, CP, SOB, N/V/D , change in urine, change in BM, vaginal symptoms. Abdominal surgical history is cholecystectomy, partial hysterectomy. Patient retains both ovaries. Former smoker. - History of Current Complaint Chief Complaint: EDFlankPain Stated Complaint: ABD PAIN PER PT Time Seen by Provider: 04/27/19 17:57 Hx Obtained From: Patient Onset/Duration: Gradual Onset, Lasting Weeks Timing: Intermittent Episode Lasting Severity Initially: Mild Severity Currently: Severe Pain Intensity: 10 Pain Scale Used: 0-10 Numeric Location: Discrete At: LLQ Radiates: No Character: Cramping Aggravating Factor(s): Nothing Alleviating Factor(s): Nothing Associated Signs and Symptoms: Positive: Negative Allergies/Adverse Reactions: Allergies Allergy/AdvReac Type Severity Reaction Status Date / Time codeine Allergy GI Upset Verified 04/27/19 13:45 Penicillins Allergy Rash Verified 04/27/19 13:45 PMH/Surg Hx/FS Hx/Imm Hx Endocrine/Hematology History: Reports: Hx Thyroid Disease - possible hashimotos Denies: Hx Diabetes, Hx Anemia Cardiovascular History: Reports: Other Cardiovascular Problems/Disorders - PERICARDIAL EFFUSION Denies: Hx Hypertension, Hx Pacemaker/ICD GI History: Reports: Hx Gall Bladder Disease - GB removed December 2010 d/t stones Denies: Hx Jaundice History: Reports: Other Problems/Disorders - interstitial cystitis under treatment as outpatient [employer] Denies: Hx Dialysis, Hx Renal Disease Musculoskeletal History: Reports: Hx Back Problems, Hx Orthopedic Injury - left patellar dislocation fixed 1982 Sensory History: Reports: Hx Contacts or Glasses Opthamlomology History: Reports: Hx Contacts or Glasses EENT History: Denies: Hx Deafness Neurological History: Denies: Hx Dementia Psychiatric History: Denies: Hx Panic Disorder - Cancer History Hx Chemotherapy: No Hx Radiation Therapy: No - Surgical History Surgery Procedure, Year, and Place: 2 back surgeries. gall bladder removed 2010 , partial hysterectomy, left patellar knee surgery Hx Anesthesia Reactions: No - Immunization History Immunizations Up to Date: Yes Infectious Disease History: No Infectious Disease History: Denies: Hx Clostridium Difficile, Hx Hepatitis, Hx Human Immunodeficiency Virus (HIV), Hx of Known/Suspected MRSA, Hx Shingles, Hx Tuberculosis, Hx Known/ Suspected VRE, Hx Known/Suspected VRSA, History Other Infectious Disease, Traveled Outside the [place] in Last 30 Days - Family History Known Family History: Negative: Respiratory Disease, Seizure Disorder Family History: No FMHx of Breast CA - Social History Alcohol Use: Occasionally Hx Substance Use: No Substance Use Type: Reports: None Hx Tobacco Use: Yes Smoking Status (MU): Former Smoker Type: Cigarettes Amount Used/How Often: 1/2 PPD Length of Time of Smoking/Using Tobacco: 30+ years Have You Smoked in the Last Year: Yes Review of Systems Constitutional: Negative Eyes: Negative ENT: Negative Cardiovascular: Negative Respiratory: Negative Positive: Abdominal Pain Genitourinary: Negative Musculoskeletal: Negative Skin: Negative Neurological: Negative Psychological: Normal All Other Systems Reviewed And Are Negative: Yes Physical Exam - Summary Physical Exam Summary: Mildly tender in left lower quadrant. Abdominal exam otherwise unremarkable. Triage Information Reviewed: Yes Vital Signs On Initial Exam: Initial Vitals Temp Pulse Resp BP Pulse Ox 98.5 F 59 18 144/104 100 04/27/19 13:42 04/27/19 13:42 04/27/19 13:42 04/27/19 13:42 04/27/19 13:42 Vital Signs Reviewed: Yes Appearance: Positive: Well-Appearing Skin: Positive: Warm Head/Face: Positive: Normal Head/Face Inspection Eyes: Positive: Normal Neck: Positive: Supple Respiratory/Lung Sounds: Positive: Clear to Auscultation Cardiovascular: Positive: Normal Abdomen Description: Positive: Nontender Musculoskeletal: Positive: Normal Neurological: Positive: Normal Psychiatric: Positive: Normal AVPU Assessment: Alert - Giovana Coma Scale Best Eye Response: 4 - Spontaneous Best Motor Response: 6 - Obeys Commands Best Verbal Response: 5 - Oriented Coma Scale Total: 15 Diagnostics - Vital Signs Vital Signs Temp Pulse Resp BP Pulse Ox 04/27/19 23:01 50 9 118/66 100 04/27/19 23:00 52 6 100 04/27/19 22:02 57 38 109/75 95 04/27/19 22:00 55 18 98 04/27/19 21:01 52 14 131/81 100 04/27/19 21:00 56 14 100 04/27/19 20:50 20 04/27/19 20:31 56 11 105/72 99 04/27/19 20:01 48 6 113/65 99 04/27/19 20:00 55 14 99 04/27/19 19:43 46 7 126/66 97 04/27/19 19:01 48 15 114/77 04/27/19 19:00 48 9 100 04/27/19 18:43 18 04/27/19 18:01 57 156/100 100 04/27/19 18:00 62 95 04/27/19 17:25 98.3 F 51 16 142/104 100 04/27/19 15:16 98.1 F 60 15 119/77 99 04/27/19 13:42 98.5 F 59 18 144/104 100 - Laboratory Lab Results: Lab Results 04/27/19 04/27/19 04/27/19 Range/Units 16:53 16:53 16:53 WBC 5.3 (3.5-10.8) 10^3/uL RBC 4.49 (3.70-4.87) 10^6 /uL Hgb 13.4 (12.0-16.0) g/dL Hct 40 (35-47) % MCV 89 (80-97) fL MCH 30 (27-31) pg MCHC 34 (31-36) g/dL RDW 13 (10-15) % Plt Count 197 (150-450) 10^3/uL MPV 8.0 (7.4-10.4) fL Neut % (Auto) 48.6 % Lymph % (Auto) 42.2 % Sac % (Auto) 7.2 % Eos % (Auto) 1.1 % Baso % (Auto) 0.9 % Absolute Neuts (auto) 2.6 (1.5-7.7) 10^3/ul Absolute Lymphs (auto) 2.2 (1.0-4.8) 10^3/ul Absolute Monos (auto) 0.4 (0-0.8) 10^3/ul Absolute Eos (auto) 0.1 (0-0.6) 10^3/ul Absolute Basos (auto) 0.0 (0-0.2) 10^3/ul Absolute Nucleated RBC 0.0 10^3/ul Nucleated RBC % 0.1 Sodium 142 (135-145) mmol/L Potassium 5.1 H (3.5-5.0) mmol/L Chloride 109 (101-111) mmol/L Carbon Dioxide 29 (22-32) mmol/L Anion Gap 4 (2-11) mmol/L BUN 14 (6-24) mg/dL Creatinine 0.78 (0.51-0.95) mg/dL Est GFR ( Amer) 93.1 (>60) Est GFR (Non-Af Amer) 77.0 (>60) BUN/Creatinine Ratio 17.9 (8-20) Glucose 96 (70-100) mg/dL Lactic Acid 0.8 (0.5-2.0) mmol/L Calcium 10.0 (8.6-10.3) mg/dL Total Bilirubin 0.30 (0.2-1.0) mg/dL AST 18 (13-39) U/L ALT 15 (7-52) U/L Alkaline Phosphatase 54 (34-104) U/L C-Reactive Protein < 1.00 (<8.01) mg/L Total Protein 7.0 (6.4-8.9) g/dL Albumin 4.6 (3.2-5.2) g/dL Globulin 2.4 (2-4) g/dL Albumin/Globulin Ratio 1.9 (1-3) Lipase 63 (11.0-82.0) U/L Urine Color Urine Appearance Urine pH (5-9) Ur Specific Britton (1.010-1.030) Urine Protein (Negative) Urine Ketones (Negative) Urine Blood (Negative) Urine Nitrate (Negative) Urine Bilirubin (Negative) Urine Urobilinogen (Negative) Ur Leukocyte Esterase (Negative) Urine WBC (Auto) (Absent) Urine RBC (Auto) (Absent) Urine Bacteria (Absent) Urine Glucose (Negative) 04/27/19 Range/Units 17:30 WBC (3.5-10.8) 10^3/uL RBC (3.70-4.87) 10^6 /uL Hgb (12.0-16.0) g/dL Hct (35-47) % MCV (80-97) fL MCH (27-31) pg MCHC (31-36) g/dL RDW (10-15) % Plt Count (150-450) 10^3/uL MPV (7.4-10.4) fL Neut % (Auto) % Lymph % (Auto) % Sac % (Auto) % Eos % (Auto) % Baso % (Auto) % Absolute Neuts (auto) (1.5-7.7) 10^3/ul Absolute Lymphs (auto) (1.0-4.8) 10^3/ul Absolute Monos (auto) (0-0.8) 10^3/ul Absolute Eos (auto) (0-0.6) 10^3/ul Absolute Basos (auto) (0-0.2) 10^3/ul Absolute Nucleated RBC 10^3/ul Nucleated RBC % Sodium (135-145) mmol/L Potassium (3.5-5.0) mmol/L Chloride (101-111) mmol/L Carbon Dioxide (22-32) mmol/L Anion Gap (2-11) mmol/L BUN (6-24) mg/dL Creatinine (0.51-0.95) mg/dL Est GFR ( Amer) (>60) Est GFR (Non-Af Amer) (>60) BUN/Creatinine Ratio (8-20) Glucose (70-100) mg/dL Lactic Acid (0.5-2.0) mmol/L Calcium (8.6-10.3) mg/dL Total Bilirubin (0.2-1.0) mg/dL AST (13-39) U/L ALT (7-52) U/L Alkaline Phosphatase (34-104) U/L C-Reactive Protein (<8.01) mg/L Total Protein (6.4-8.9) g/dL Albumin (3.2-5.2) g/dL Globulin (2-4) g/dL Albumin/Globulin Ratio (1-3) Lipase (11.0-82.0) U/L Urine Color Yellow Urine Appearance Clear Urine pH 6.0 (5-9) Ur Specific Britton 1.008 L (1.010-1.030) Urine Protein Negative (Negative) Urine Ketones Negative (Negative) Urine Blood Negative (Negative) Urine Nitrate Negative (Negative) Urine Bilirubin Negative (Negative) Urine Urobilinogen Negative (Negative) Ur Leukocyte Esterase 2+ A (Negative) Urine WBC (Auto) 2+(11-20/hpf) A (Absent) Urine RBC (Auto) Trace(0-2/hpf) (Absent) Urine Bacteria Absent (Absent) Urine Glucose Negative (Negative) Result Diagrams: 04/27/19 16:53 04/27/19 16:53 Lab Statement: Any lab studies that have been ordered have been reviewed, and results considered in the medical decision making process. Abdominal Pain Fem Course/Dx - Course Course Of Treatment: Patient complains of left lower quadrant abdominal pain 1 month. Patient states pain is intermittent, occasionally 10/10, progressive over the past few days. Worse with nothing, improves with nothing other than naproxen. Patient has history of kidney stones. Denies fever, cough, sore throat, CP, SOB, N/V/D, change in urine, change in BM, vaginal symptoms. Abdominal surgical history is cholecystectomy, partial hysterectomy. Patient retains both ovaries. Former smoker. Vital signs within normal limits. Labs unremarkable. Transvaginal ultrasound positive for left ovarian cyst. CT abdomen and pelvis positive for left ovarian cyst. Patient states she feels nauseous here in ED. Provided with Rx for Zofran and pain medication. Follow up with [facility]. - Diagnoses Provider Diagnoses: Left ovarian cyst Discharge - Sign-Out/Discharge Documenting (check all that apply): Patient Departure Patient Received Moderate/Deep Sedation with Procedure: No - Discharge Plan Condition: Stable Disposition: HOME Prescriptions: Ondansetron ODT TAB* [Zofran 4 MG Odt TAB*] 4 mg PO Q8H PRN 4 Days #14 tab.odt PRN Reason: Nausea Oxycodone HCl 5 mg PO TID 6 Days #6 tablet MDD 3 tabs Patient Education Materials: Ovarian Cyst (ED) Forms: *Work Release Referrals: Toya Villa MD [Primary Care Provider] - Karin Justin MD [Medical Doctor] - Additional Instructions: Alternate ibuprofen 400 mg with ibuprofen 650 mg every 3 hours for pain. Take oxycodone as directed for pain if needed. Take Zofran for nausea as directed if needed. Follow up with [facility] Dr. Justin for further evaluation of ovarian cyst. Return to the ED for any new or worsening symptoms. - Billing Disposition and Condition Condition: STABLE Disposition: Home
[2019-04-27 23:33] VITALS: BP 110/67
== END 2019-04-27 23:32 | disposition home or self-care (01) ==
LOC: ED 13:40
DX: N83.202 Unspecified ovarian cyst, left side (principal); E07.9 Disorder of thyroid, unspecified; Z88.5 Allergy status to narcotic agent; Z88.0 Allergy status to penicillin; Z87.891 Personal history of nicotine dependence; Z87.442 Personal history of urinary calculi; Z90.49 Acquired absence of other specified parts of digestive tract; Z90.711 Acquired absence of uterus with remaining cervical stump
CPT/HCPCS: 36415; 74177; 76830; 80053; 81003; 81015; 83605; 83690; 85025; 86140; 87086; 96361; 96374; 96375; 96376; 99284; A9270-GY; J2270; J2405; Q9967

== ENCOUNTER → 2019-05-13 07:45 | Day surgery (SDC) | payer BC ==
[~2019-05-13 07:45] MED LIST changes: +Buffered Lidocaine 1% SYRIN* 1 ML/SYRINGE INTRADERM ONE; +Bupivacaine 0.25% SDV PF* 10 ML VIAL INJ ONE; +Dexamethasone IV* 4 MG/ML 1 ML (4 MG) ONE; +DiMENhydriNATE IV* 50 MG/ML VIAL IV PUSH PRN; +Glycopyrrolate IV* 0.2 MG/ML 1 ML VIAL ONE; +HYDROmorphone INJ1* 1 MG/ML SYRINGE IV PRN; -Ketorolac INJ* 30 MG/ML 1 ML VIAL IV PUSH ONE; +Ketorolac INJ* 30 MG/ML 1 ML VIAL ONE; +Lactated Ringers 1000 ML Bag* 1,000 ML IV SCH; +Lidocaine 2% PF * 5 ML VIAL ONE; -Metoclopramide IV* 5 MG/ML 2 ML VIAL IV ONE; +Midazolam* 1 MG/ML 5 ML VIAL (5 MG) ONE; -NS 0.9% 1000 ML** 1,000 ML IV ONE; +Naloxone* 0.4 MG/ML 1 ML VIAL IV PRN; +Neostigmine Methylsulfate* 3 MG/3 ML SYRINGE ONE; -Nicotine Inhaler* 10 MG AMP INH PRN; +Ondansetron INJ* 2 MG/ML VIAL IV PRN; +Ondansetron INJ* 2 MG/ML VIAL ONE; +Propofol* 10 MG/ML 20 ML BTL ONE; +Rocuronium* 10 MG/ML VIAL ONE; +Scopolamine 1.5 mg* PATCH TRANSDERM PRN; +Scopolamine PATCH Remove* 1 NOTE MISC PATCH OFF ONE; -diPHENhydraMINE IV* 50 MG/ML 1 ml VIAL (BENADRYL) IV ONE; +fentaNYL* 50 MCG/ML 2 ML VIAL (100 MCG VIAL) ONE; +oxyCODONE/Acetamin 5/325 MG* TAB ONE
[2019-05-13] MEDS: fentaNYL* 50 MCG/ML 2 ML VIAL (100 MCG VIAL) IV PRN ×3 (12:30→12:40)
[2019-05-13] MEDS: oxyCODONE/Acetamin 5/325 MG* TAB PO PRN ×2 (12:41→13:02)
[2019-05-13 13:51] VITALS: BP 124/83
--- NOTE | 2019-05-15 19:36 | OP ---
DATE OF OPERATION: 05/13/19 [facility] DATE OF : 63 SURGEON: Ita Martins MD. COMMERCIAL HELICOPTER PILOT: Maylin Reid MD. ANESTHESIOLOGIST: Dr. Pathak. ANESTHESIA: General. PRE-OP DIAGNOSES: Left lower quadrant pain and left adnexal cyst. POST-OP DIAGNOSES: Left lower quadrant pain, left ovarian cyst, and pelvic adhesive disease. OPERATIVE PROCEDURE: Laparoscopic left oophorectomy and lysis of adhesions. ESTIMATED BLOOD LOSS: 20 cc. URINE OUTPUT: 200 cc. IV FLUIDS: 1000 cc lactated Ringer's. MATERIALS TO LAB: Left ovary. COMPLICATIONS: None. DESCRIPTION OF PROCEDURE: The risks, benefits, and alternatives were described to the patient and informed consent was obtained. The patient was taken to the operating room with IV running, where general anesthesia was induced and found to be adequate. The patient was prepped and draped in the normal sterile fashion in the low lithotomy position and Marquise stirrups. A time-out was performed. The bladder was emptied. A sponge stick was then placed in the vagina and gloves were changed. Attention was then turned to the abdomen. Marcaine 0.25% was then injected into the umbilicus. A 5 mm vertical skin incision was made in the umbilicus. Penetrating towel clamps were placed on either side of the incision to elevate the skin and a 5 mm bladeless trocar was placed into the peritoneal cavity without difficulty with the camera in place. The abdomen was then insufflated with carbon dioxide gas to a maximum pressure of 15 mmHg. The area below the trocar insertion site was carefully inspected, and there was no visible evidence of trauma or bleeding. The patient was placed in the Trendelenburg position. Additional Marcaine was injected in the left and right lower quadrants. A 5 mm incision was made on either side and 5 mm bladeless trocars were also placed into these sites without difficulty. The bowel was then swept out of the pelvis as much as possible using blunt grasper. On inspection, there was a modest amount of large-bowel adhesed to the right lower quadrant and this was largely left in place. The bowel was lifted in order to be able to see the left adnexa and both the tube and ovary appeared normal. On the left side, the ovary appeared to be wrapped in adhesions, which were adjacent to the small- and large-bowel. Using Endoshears initially to gently dissect some of the fatty adhesions off of the ovary, the ovary was largely freed from the adhesions. Only a small amount of cauterization was used during this portion of the procedure. A LigaSure was then used to clamp, coagulate, and transect the additional connections of the ovary without difficulty. Care was taken to stay as close as possible to the ovary. The ovary had a modest cyst about 2.5 cm. This was ruptured and productive of clear fluid. Once it was completely amputated, a 5 mm EndoCatch bag was placed into the abdomen. The ovary was placed into the bag and after removing the trocar, the bag was able to be removed without difficulty. The trocar was replaced. On careful inspection, there was no visible additional trauma or bleeding. The bowel was inspected and appeared to be uninjured. The remainder of the abdomen and pelvis were briefly inspected and there were no other abnormalities seen. The appendix was not visualized as the large-bowel was somewhat adhesed in the right lower quadrant and could not be easily manipulated. The procedure was then discontinued. The gas was turned off and allowed to escape from the abdomen as much as possible. The patient was flattened and the trocars were removed. The right and left lower quadrant incisions were reapproximated using 4-0 Monocryl in a subcuticular stitch and then all 3 incisions were covered with DermaFlex skin adhesives. The sponge stick was removed from the vagina and the patient was returned to the supine position. The patient tolerated the procedure well. Sponge, lap and needle counts were correct x2. [id number]/[facility] #: [id number] MTDD
== END | disposition home or self-care (01) ==
LOC: OR 07:45
PROVIDERS: ATTEND Obstetrics & Gynecology
DX: N83.202 Unspecified ovarian cyst, left side (principal); N73.6 Female pelvic peritoneal adhesions (postinfective); R10.2 Pelvic and perineal pain; Z87.891 Personal history of nicotine dependence; E03.9 Hypothyroidism, unspecified; N39.498 Other specified urinary incontinence
CPT/HCPCS: 88305; A9270-GY; J1100; J1885; J2250; J2405; J2704; J2710; J3010; J3490